=== PATIENT | female | born 1945 | race Caucasian/White ===

== ENCOUNTER → 2020-12-11 | Outpatient (CLI) | payer MEDICARE ==
[2020-12-11 13:34] LABS: African American GFR (CKD) >90 (>60 ml/min/1.73 sqM); Blood Urea Nitrogen 15 mg/dL (7-17); Non-African American GFR(CKD) 86 (>60 ml/min/1.73 sqM)
--- NOTE | 2020-12-12 11:50 | CT ---
EXAMINATION TYPE: CT abdomen pelvis w con DATE OF EXAM: 12/11/2020 COMPARISON: None HISTORY: Diverticulitis CT DLP: 578.4 mGycm CONTRAST: CT scan of the abdomen and pelvis is performed with Oral Contrast and with IV Contrast, patient injec shobha with 100 ml mL of Isovue 300. FINDINGS: LUNG BASES-: No visible nodule. No infiltrate. LIVER/GB: No calcified gallstones. No space occupying hepatic lesion. Biliary tree is of normal ca liber. PANCREAS: No inflammation. No distinct mass. SPLEEN: No splenic enlargement. 1 cm cystic lesion midportion spleen. ADRENALS: No nodule. No thickening. KIDNEYS/BLADDER: No hydronephrosis. No nephrolithiasis. No distinct renal mass. Urinary bladder g rossly unremarkable. BOWEL: Normal appendix. Normal bowel caliber. No inflammation. Fecal stasis. No evidence for divert iculitis or inflammatory process. GENITAL ORGANS: No gross abnormality. LYMPH NODES: No greater than 1cm abdominal or pelvic lymph nodes are appreciated. AORTA: Abdominal aortic aneurysm measuring 3.3 cm. OSSEOUS STRUCTURES: No significant abnormality is seen. OTHER: No significant additional abnormality is seen. IMPRESSION: 1. Fecal stasis. No evidence for diverticulitis. 2. Abdominal aortic aneurysm.
== END | disposition home or self-care (01) ==
LOC: RADCTMAIN 12:52
PROVIDERS: ATTEND Surgery
DX: I71.4 Abdominal aortic aneurysm, without rupture (principal); K59.89 Other specified functional intestinal disorders
CPT/HCPCS: 82565; 84520; 74177; 36415; Q9967

== ENCOUNTER → 2020-12-16 | Outpatient (CLI) | payer MEDICARE ==
[2020-12-16 13:33] LABS: HCT 43.1 % (34.0-46.0); HGB 13.8 gm/dL (11.4-16.0); MCH 32.2 pg (25.0-35.0); MCHC 31.9 g/dL (31.0-37.0); Mean Platelet Volume 7.6; Platelet Count 205 k/uL (150-450); RBC 4.27 m/uL (3.80-5.40); RDW 13.3 % (11.5-15.5); WBC 5.4 k/uL (3.8-10.6)
[2020-12-16 14:10] LABS: Anion Gap 8 mmol/L; Carbon Dioxide 27 mmol/L (22-30); Chloride 101 mmol/L (98-107); Potassium 4.3 mmol/L (3.5-5.1); Sodium 136 mmol/L (137-145)
[2020-12-16 14:52] LABS: ALT 12 U/L (4-34); AST 27 U/L (14-36); African American GFR (CKD) >90 (>60 ml/min/1.73 sqM); Alkaline Phosphatase 73 U/L (38-126); Blood Urea Nitrogen 19 mg/dL (7-17); Calcium 10.5 mg/dL (8.4-10.2); Glucose 90 mg/dL (74-99); Non-African American GFR(CKD) >90 (>60 ml/min/1.73 sqM); Total Bilirubin 0.5 mg/dL (0.2-1.3); Total Protein 6.8 g/dL (6.3-8.2)
== END | disposition home or self-care (01) ==
LOC: LABPAT 11:33
PROVIDERS: ATTEND Surgery
DX: Z01.818 Encounter for other preprocedural examination (principal); K57.33 Diverticulitis of large intestine without perforation or abscess with bleeding; R94.31 Abnormal electrocardiogram [ECG] [EKG]
CPT/HCPCS: 36415; 80053; 85027; 93005

== ENCOUNTER → 2020-12-16 | Outpatient (CLI) | payer MEDICARE ==
--- NOTE | 2020-12-16 15:00 | XR ---
EXAMINATION TYPE: XR chest 2V DATE OF EXAM: 12/16/2020 COMPARISON: NONE HISTORY: History of atrial fibrillation. Presurgical study. TECHNIQUE: Frontal and lateral views of the chest are obtained. FINDINGS: There are chronic parenchymal changes without suspicious focal air space opacity, pleural effusion, or pneumothorax seen. The cardiac silhouette size is within normal limits with atheroscler otic change aortic knob. The osseous structures are somewhat demineralized. IMPRESSION: No acute cardiopulmonary process.
== END | disposition home or self-care (01) ==
LOC: RADXRMAIN 14:31
PROVIDERS: ATTEND Family Medicine
DX: Z01.818 Encounter for other preprocedural examination (principal); Z86.79 Personal history of other diseases of the circulatory system
CPT/HCPCS: 71046

== ENCOUNTER 2020-12-27 07:52 | Day surgery (SDC) | payer MEDICARE ==
[2020-12-27 08:46] VITALS: RESP 16; TEMP 98.4
[2020-12-27] MEDS: LACTATED RINGERS 1,000 ML IV SCH ×3 (08:55→09:03)
[2020-12-27] MEDS ORDERED: PROPOFOL 10 MG/ML 20 ML VIAL IV ONE (09:03)
[2020-12-27] MEDS ORDERED: LIDOCAINE 1% INJ 10MG/ML (20 ML MDV) ONE (09:03)
[2020-12-27] MEDS ORDERED: GLUCAGON 1 MG/ML VIAL ONE (09:03)
[2020-12-27] MEDS ORDERED: GLYCOPYRROLATE 0.2 MG/ML 2 ML VIAL ONE (09:03)
--- NOTE | 2020-12-27 09:06 | P.GSHP ---
History of Present Illness H&P Date: 12/27/20 Chief Complaint: Left lower quadrant pain, diverticulitis This is a 75-year-old female with a left lower quadrant pain. She presents today for colonoscopy to evaluate for possible diverticulitis Past Medical History Past Medical History: COPD, GERD/Reflux, Hyperlipidemia, Hypertension, Osteoarthritis (OA), Pulmonary Embolus (PE), Thyroid Disorder Additional Past Medical History / Comment(s): DIVERTICULITIS History of Any Multi-Drug Resistant Organisms: None Reported Past Surgical History: Tonsillectomy Past Anesthesia/Blood Transfusion Reactions: No Reported Reaction Past Psychological History: No Psychological Hx Reported Smoking Status: Current every day smoker Past Alcohol Use History: Occasional Additional Past Alcohol Use History / Comment(s): HAS SMOKED FOR 50 YEARS, DOWN TO 10 PER DAY Past Drug Use History: None Reported - Past Family History Mother Family Medical History: No Reported History Medications and Allergies Home Medications Medication Instructions Recorded Confirmed Type Apixaban [Eliquis] 5 mg PO DAILY 12/21/20 12/27/20 History Cyanocobalamin (Vitamin B-12) 1 tab PO DAILY 12/21/20 12/27/20 History [Vitamin B-12] Fluticasone/Vilanterol [Breo 1 puff INHALATION QAM 12/21/20 12/27/20 History Ellipta 200-25 Mcg Inhaler] Hydrocodone/Acetaminophen [[place] 1 tab PO BID PRN 12/21/20 12/27/20 History 7.5-325] Levothyroxine Sodium 100 mcg PO QAM 12/21/20 12/27/20 History Metoprolol Tartrate 25 mg PO BID 12/21/20 12/27/20 History Montelukast [Singulair] 10 mg PO HS 12/21/20 12/27/20 History Omeprazole 40 mg PO QAM 12/21/20 12/27/20 History Raloxifene [Evista] 60 mg PO HS 12/21/20 12/27/20 History Rosuvastatin [Crestor] 10 mg PO HS 12/21/20 12/27/20 History Allergies Allergy/AdvReac Type Severity Reaction Status Date / Time naproxen [From Naprosyn] Allergy Dyspnea, Verified 12/27/20 08:37 MOUTH SWELLING Tetanus Vaccines and Toxoid Allergy Unknown Verified 12/27/20 08:37 Childhood Surgical - Exam Vital Signs Temp Pulse Resp BP Pulse Ox 98.4 F 88 16 147/60 93 L 12/27/20 08:44 12/27/20 08:44 12/27/20 08:44 12/27/20 08:44 12/27/20 08:44 - General well developed, well nourished, no distress - Eyes PERRL - ENT normal pinna - Neck no masses - Respiratory normal expansion - Cardiovascular Rhythm: regular - Abdomen Abdomen: soft, non tender Assessment and Plan Assessment: History of flow quadrant pain. We'll perform colonoscopy.
--- NOTE | 2020-12-27 09:24 | P.OP ---
Date of Procedure: 12/27/20 Preoperative Diagnosis: Diverticulitis Postoperative Diagnosis: Rectal polyp Procedure(s) Performed: Colonoscopy Anesthesia: MAC Surgeon: Reynold Soto Pathology: other (Rectal polyp) Condition: stable Disposition: PACU Description of Procedure: The patient's placed on the endoscopy table in the lateral position. She received IV sedation. Digital rectal exam was performed. This revealed no abnormalities. Flexible colonoscope was then placed patient anus passed throughout the colon. The colonoscope was passed beyond the sigmoid colon sigmoid tortuosity valve. This point the colonoscope was withdrawn. The pediatric colonoscope was then attempted placement colon. The scope could not pass beyond the sigmoid colon secondary to tortuous valve. This this point the scope was withdrawn. In the rectum there is a sessile polyp seen this removed with the cold forcep. Withdrawn for patient. Patient was scheduled for a barium enema.
[2020-12-27 09:40] VITALS: BP 131/71; PULSE 89
== END 2020-12-27 11:17 | disposition home or self-care (01) ==
LOC: ORWHC2ENDO 07:52
PROVIDERS: ATTEND Surgery
DX: K57.90 Diverticulosis of intestine, part unspecified, without perforation or abscess without bleeding (principal); K62.1 Rectal polyp; J44.9 Chronic obstructive pulmonary disease, unspecified; K21.9 Gastro-esophageal reflux disease without esophagitis; E78.5 Hyperlipidemia, unspecified; I10 Essential (primary) hypertension; M19.90 Unspecified osteoarthritis, unspecified site; F17.210 Nicotine dependence, cigarettes, uncomplicated; Z86.711 Personal history of pulmonary embolism; Z79.899 Other long term (current) drug therapy; Z88.6 Allergy status to analgesic agent; Z88.7 Allergy status to serum and vaccine; E07.9 Disorder of thyroid, unspecified; Z79.01 Long term (current) use of anticoagulants
CPT/HCPCS: 88305; 45333; J1610; J2001; J2704

== ENCOUNTER 2020-12-28 07:40 | Inpatient (IN) | payer MEDICARE ==
[~2020-12-28 07:40] MED LIST: ACETAMINOPHEN TAB 500 MG TAB PO PRN; DEXAMETHASONE SOD PHOSPHATE 4 MG/ML 1 ML VIAL IV ONE; HEPARIN SODIUM,PORCINE/PF 5,000 UNIT/0.5 ML SYRINGE SQ PRN; HYDROmorphone 0.5 MG/0.5 ML SYRINGE IVP PRN; MIDAZOLAM 2 MG/2 ML VIAL IV PRN; metroNIDAZOLE-NS PMX 500 MG in SALINE 1 100ML.BAG IVPB PRN
[2020-12-28] MEDS: LACTATED RINGERS 1,000 ML IV SCH ×2 (09:18→23:37)
[2020-12-28] MEDS ORDERED: LIDOCAINE 1% (10MG/ML) FOR IV START INTRADERMA ONE (09:18)
[2020-12-28] MEDS ORDERED: ALVIMOPAN 12 MG CAPSULE PO ONE (09:25)
[2020-12-28] MEDS: ONDANSETRON 4 MG/2 ML VIAL IVP ONE ×2 (09:25→14:36)
--- NOTE | 2020-12-28 10:51 | P.GSHP ---
History of Present Illness H&P Date: 12/28/20 Chief Complaint: Left lower quadrant pain, diverticulitis This a 75-year-old female who presents today for low anterior section. Patient had chronic complaints of left lower quadrant pain and previous history of diverticulitis. Past Medical History Past Medical History: COPD, GERD/Reflux, Hyperlipidemia, Hypertension, Osteoarthritis (OA), Pulmonary Embolus (PE), Thyroid Disorder Additional Past Medical History / Comment(s): DIVERTICULITIS History of Any Multi-Drug Resistant Organisms: None Reported Past Surgical History: Tonsillectomy Past Anesthesia/Blood Transfusion Reactions: No Reported Reaction Past Psychological History: No Psychological Hx Reported Smoking Status: Current every day smoker Past Alcohol Use History: Occasional Additional Past Alcohol Use History / Comment(s): HAS SMOKED FOR 50 YEARS, DOWN TO 10 PER DAY Past Drug Use History: None Reported - Past Family History Mother Family Medical History: No Reported History Medications and Allergies Home Medications Medication Instructions Recorded Confirmed Type Apixaban [Eliquis] 5 mg PO DAILY 12/21/20 12/28/20 History Cyanocobalamin (Vitamin B-12) 1 tab PO DAILY 12/21/20 12/28/20 History [Vitamin B-12] Fluticasone/Vilanterol [Breo 1 puff INHALATION QAM 12/21/20 12/28/20 History Ellipta 200-25 Mcg Inhaler] Hydrocodone/Acetaminophen [[place] 1 tab PO BID PRN 12/21/20 12/28/20 History 7.5-325] Levothyroxine Sodium 100 mcg PO QAM 12/21/20 12/28/20 History Metoprolol Tartrate 25 mg PO BID 12/21/20 12/28/20 History Montelukast [Singulair] 10 mg PO HS 12/21/20 12/28/20 History Omeprazole 40 mg PO QAM 12/21/20 12/28/20 History Raloxifene [Evista] 60 mg PO HS 12/21/20 12/28/20 History Rosuvastatin [Crestor] 10 mg PO HS 12/21/20 12/28/20 History Allergies Allergy/AdvReac Type Severity Reaction Status Date / Time naproxen [From Naprosyn] Allergy Dyspnea, Verified 12/28/20 09:11 MOUTH SWELLING Tetanus Vaccines and Toxoid Allergy Unknown Verified 12/28/20 09:11 Childhood Surgical - Exam Vital Signs Temp Pulse Resp BP Pulse Ox 98.4 F 69 16 115/56 93 L 12/28/20 09:07 12/28/20 09:07 12/28/20 09:07 12/28/20 09:07 12/28/20 09:07 - General well developed, well nourished, no distress - Eyes PERRL - ENT normal pinna - Neck no masses - Respiratory normal expansion - Cardiovascular Rhythm: regular - Abdomen Mild tenderness left lower quadrant Abdomen: soft Assessment and Plan Assessment: Chronic left lower quadrant pain, history of diverticula is. We'll perform a low anterior resection
[2020-12-28] MEDS ORDERED: PROPOFOL 10 MG/ML 20 ML VIAL IV ONE (11:20)
[2020-12-28] MEDS ORDERED: ROCURONIUM 10 MG/ML (5 ML VIAL) IV ONE (11:20)
[2020-12-28] MEDS ORDERED: NEOSTIGMINE 1 MG/ML 10 ML VIAL ONE (11:20)
[2020-12-28] MEDS ORDERED: HYDROmorphone (PF) 1 MG/ML ONE (11:20)
[2020-12-28] MEDS ORDERED: GLYCOPYRROLATE 0.2 MG/ML 2 ML VIAL ONE (11:20)
[2020-12-28] MEDS ORDERED: fentaNYL (PF) 50 MCG/ML 2 ML AMP ONE (11:20)
[2020-12-28] MEDS ORDERED: SUCCINYLCHOLINE CHLORIDE 100 MG/5 ML SYR IV ONE (11:20)
[2020-12-28] MEDS ORDERED: LIDOCAINE 1% INJ 10MG/ML (20 ML MDV) ONE (11:20)
[2020-12-28] MEDS ORDERED: NALOXONE 0.4 MG/ML 1 ML VIAL IV PRN (12:37)
--- NOTE | 2020-12-28 12:39 | P.ANPRN ---
Procedure Note - Anesthesia - Epidural/Spinal Epidural Time Out Performed: Yes Date of Procedure: 12/28/20 Procedure Start Time: 10:20 Procedure Stop Time: 10:31 Location of Patient: PreOp Indication: Acute Post-Operative Pain Sedation Type: Sedate with meaningful contact maintained Preparation: Sterile Dressing Position: Sitting Catheter: Indwelling Needle Guage: 18 Injectate: Test Dose Lidocaine1.5% w/1:200,000 epi (3cc) Blood Aspirated: No Pain Paresthesia on Injection Noted: No Events: Uneventful and Well Tolerated
[2020-12-28] MEDS ORDERED: METOCLOPRAMIDE 5 MG/ML 2 ML VIAL IVP PRN (12:52)
--- NOTE | 2020-12-28 13:02 | P.OP ---
Date of Procedure: 12/28/20 Preoperative Diagnosis: Diverticulitis Postoperative Diagnosis: Diverticulitis with pelvic abscess Procedure(s) Performed: Low anterior resection Partial omentectomy Anesthesia: TRACY Surgeon: Reynold Soto Estimated Blood Loss (ml): 50 Pathology: other (Sigmoid colon, abscess culture, omentum) Condition: stable Disposition: PACU Description of Procedure: The patient's placed on the operative table in supine position. She received general endotracheal tube anesthesia. Her abdomen was prepped and draped usual sterile fashion. And was entered through a low midline incision. The [place] tract with wound. The small bowel was packed out of the pelvis. And then the sigmoid colon was visualized. There was induration of the sigmoid colon. The; was significantly stuck to the left pelvic sidewall. Using blunt and sharp dissection the; was dissected away from the left pelvis. There was an abscess cavity entered. This was approximately 2 cm in diameter. The area was cultured. And then the sigmoid colon was transected proximally and then using Enseal device the mesentery of the bowel was divided. The mesorectum was divided. And then the rectum was transected with the contour stapler. The proximal colon was then opened at the staple line. The anvil for the 25 mm EEA stapler was placed into the colon. The colon was then transected with a LOPEZ stapler. The anvil was then driven through the colon just proximal to the staple line. The assistant press operator then placed the EEA stapler in the anus. The spike for stapler was driven through the rectal staple line. The antrum was then connected to the stapler. The stapler closed and fired. The stapler was with drawn. 2 intact tissue rings were withdrawn from stapler. Using a high Prograf the bowel was occluded. And then using a rigid sigmoidoscope the rectum was insufflated with air. There was no evidence of leakage at the staple line. The abdomen was irrigated is no bleeding seen. There was a portion of omentum which was nonviable this was transected with the Enseal device and sent to pathology. The fascia was closed with looped #1 PDS suture. Skin was closed sera. Patient top she will well and was sent to recovery room in stable condition.
[2020-12-28] MEDS ORDERED: ONDANSETRON 4 MG/2 ML VIAL ONE (14:33)
[2020-12-28] MEDS ORDERED: diphenhydrAMINE 50 MG/ML 1 ML VIAL ONE (14:40)
[2020-12-28] MEDS ORDERED: SODIUM CHLORIDE 0.9% 1,000 ML IV ONE ×2 (14:41→16:25)
[2020-12-28] MEDS ORDERED: diphenhydrAMINE 50 MG/ML 1 ML VIAL IVP ONE (14:43)
[2020-12-28] MEDS ORDERED: METOCLOPRAMIDE 5 MG/ML 2 ML VIAL IVP ONE (16:16)
[2020-12-28] MEDS: D5-0.45% NACL WITH KCL 20MEQ/L 1,000 ML IV SCH ×2 (17:49→23:36)
[2020-12-28] MEDS: HEPARIN SODIUM,PORCINE/PF 5,000 UNIT/0.5 ML SYRINGE SQ SCH ×2 (18:20→23:36)
[2020-12-28] MEDS: ROPIVACAINE 250 MG, fentaNYL (PF) 625 MCG in SODIUM CHLORIDE 0.9% 188 ML EPIDURAL PRN ×2 (20:22→23:37)
[2020-12-28] MEDS: ALVIMOPAN 12 MG CAPSULE PO SCH (20:22)
[2020-12-28 22:26] LABS: Basophils % (A) 0 %; Eosinophils % (A) 0 %; HCT 39.2 % (34.0-46.0); HGB 12.9 gm/dL (11.4-16.0); Lymphocytes # (A) 0.9 k/uL (1.0-4.8); Lymphocytes % (A) 8 %; MCH 32.7 pg (25.0-35.0); MCHC 32.9 g/dL (31.0-37.0); MCV 99.3 fL (80.0-100.0); Mean Platelet Volume 9.2; Monocytes # (A) 0.3 k/uL (0-1.0); Monocytes % (A) 3 %; Neutrophils # (A) 9.5 k/uL (1.3-7.7); Neutrophils % (A) 88 %; Platelet Count 148 k/uL (150-450); RBC 3.94 m/uL (3.80-5.40); RDW 13.2 % (11.5-15.5); WBC 10.8 k/uL (3.8-10.6)
[2020-12-28 22:37] LABS: African American GFR (CKD) >90 (>60 ml/min/1.73 sqM); Blood Urea Nitrogen 8 mg/dL (7-17); Carbon Dioxide 29 mmol/L (22-30); Non-African American GFR(CKD) >90 (>60 ml/min/1.73 sqM)
[2020-12-28 22:58] LABS: Anion Gap 5 mmol/L; Chloride 103 mmol/L (98-107); Glucose 169 mg/dL (74-99); Potassium 4.1 mmol/L (3.5-5.1); Sodium 136 mmol/L (137-145)
[2020-12-29] MEDS: HEPARIN SODIUM,PORCINE/PF 5,000 UNIT/0.5 ML SYRINGE SQ SCH (07:53)
[2020-12-29] MEDS: CYANOCOBALAMIN 500 MCG TAB PO SCH (07:53)
[2020-12-29] MEDS: METOPROLOL TARTRATE 25 MG TAB PO SCH ×2 (07:54→20:13)
[2020-12-29] MEDS: ALVIMOPAN 12 MG CAPSULE PO SCH ×2 (07:54→20:13)
[2020-12-29] MEDS: LEVOTHYROXINE 100 MCG TAB PO SCH (07:54)
[2020-12-29] MEDS: PANTOPRAZOLE 40 MG TABLET PO SCH (07:57)
[2020-12-29] MEDS: SYMBICORT 160-4.5 MCG INHALER INHALATION SCH ×2 (09:00→19:36)
[2020-12-29] MEDS: SIMETHICONE 40 MG/0.6 ML DROPS 2,000 MG/30 ML BOTTLE PO SCH ×4 (10:01→21:21)
[2020-12-29] MEDS: PIPERACILLIN-TAZOBACTAM 3.375 GM in SODIUM CHLORIDE 0.9% 100 ML IVPB SCH ×2 (10:02→17:31)
[2020-12-29] MEDS: D5-0.45% NACL WITH KCL 20MEQ/L 1,000 ML IV SCH ×2 (10:03→17:31)
[2020-12-29 10:21] LABS: Basophils % (A) 0 %; Eosinophils % (A) 0 %; HCT 40.7 % (34.0-46.0); HGB 12.9 gm/dL (11.4-16.0); Lymphocytes # (A) 1.5 k/uL (1.0-4.8); Lymphocytes % (A) 17 %; MCH 32.1 pg (25.0-35.0); MCHC 31.8 g/dL (31.0-37.0); Mean Platelet Volume 7.7; Monocytes # (A) 0.3 k/uL (0-1.0); Monocytes % (A) 4 %; Neutrophils # (A) 6.7 k/uL (1.3-7.7); Neutrophils % (A) 77 %; Platelet Count 180 k/uL (150-450); RBC 4.02 m/uL (3.80-5.40); RDW 13.1 % (11.5-15.5); WBC 8.7 k/uL (3.8-10.6)
[2020-12-29 10:32] LABS: ALT 14 U/L (4-34); AST 33 U/L (14-36); African American GFR (CKD) >90 (>60 ml/min/1.73 sqM); Albumin 3.2 g/dL (3.5-5.0); Albumin/Globulin Ratio 1.2; Alkaline Phosphatase 66 U/L (38-126); Anion Gap 2 mmol/L; Blood Urea Nitrogen 5 mg/dL (7-17); Calcium 9.5 mg/dL (8.4-10.2); Carbon Dioxide 33 mmol/L (22-30); Chloride 100 mmol/L (98-107); Globulin 2.7 g/dL; Glucose 147 mg/dL (74-99); Non-African American GFR(CKD) >90 (>60 ml/min/1.73 sqM); Potassium 3.9 mmol/L (3.5-5.1); Sodium 135 mmol/L (137-145); Total Bilirubin 0.3 mg/dL (0.2-1.3); Total Protein 5.9 g/dL (6.3-8.2)
[2020-12-29 10:46] LABS: C Reactive Protein 15.2 mg/dL (<1.0)
--- NOTE | 2020-12-29 11:37 | P.PN ---
Subjective Progress Note Date: 12/29/20 CHIEF COMPLAINT: Diverticulitis with pelvic abscess HISTORY OF PRESENT ILLNESS: Patient is status post lower anterior resection and partial omentectomy. Postop day #1. Has epidural in place. Patient is reporting pain. Her pain is slightly improved since the increase in her epidural. There is apparent with some leaking from the epidural and the CUSTOMER ADVOCACY MANAGER will be through to reevaluate. Patient also complaining of gas pains in the shoulders. Patient denies any nausea vomiting. Denies any flatus. She has had good urine output. Afebrile. WBC 8.7 Hgb 12.9 sodium 135 creatinine 0.5 to CRP 15.2 PHYSICAL EXAM: VITAL SIGNS: Reviewed. GENERAL: Well-developed in no acute distress. HEENT: No sclera icterus. Extraocular movements grossly intact. Moist buccal mucosa. Head is atraumatic, normocephalic. ABDOMEN: Soft. Nondistended. Incisional dressing minimal dry blood noted at the distal aspect incisional dressing NEUROLOGIC: Alert and oriented. Cranial nerves II through XII grossly intact. ASSESSMENT: 1. Diverticulitis with pelvic abscess status post lower anterior resection and partial omentectomy PLAN: -Continue clear liquid diet -Continue epidural for pain control -Continue Grewal catheter -Add simethicone gas drops -Continue IV fluids -Encourage patient to ambulate -Encourage patient to use incentive spirometer -Continue antibiotics -GI and DVT prophylaxis Physician Pet Supplies Salesperson note has been reviewed by physician. Signing provider agrees with the documented findings, assessment, and plan of care. Objective - Vital Signs Vital signs: Vital Signs Temp 97.9 F 12/29/20 07:16 Pulse 78 12/29/20 07:16 Resp 18 12/29/20 07:16 BP 117/66 12/29/20 07:16 Pulse Ox 93 L 12/29/20 07:16 Intake & Output 12/28/20 12/29/20 12/29/20 18:59 06:59 18:59 Intake Total 2029 19.5 61.916 Output Total 1950 1000 Balance 80 -980.5 61.916 Weight 64.8 kg Intake: IV 2030 Intake, IV Titration 19.5 61.916 Amount Ropivacaine 250 mg 19.5 61.916 fentaNYL (PF) 625 mcg In Sodium Chloride 0.9% 188 ml @ Per Protocol EPIDURAL .Q0M PRN Rx#: [id number] Output: Urine 1900 1000 Estimated Blood Loss 50 Other: Voiding Method Indwelling Catheter Indwelling Catheter Indwelling Catheter - Labs CBC & Chem 7: 12/29/20 09:41 12/29/20 09:41 Labs: Abnormal Lab Results - Last 24 Hours (Table) 12/28/20 12/28/20 12/29/20 Range/Units 22:14 22:14 09:41 WBC 10.8 H (3.8-10.6) k/uL MCV 101.0 H (80.0-100.0) fL Plt Count 148 L (150-450) k/uL Neutrophils # 9.5 H (1.3-7.7) k/uL Lymphocytes # 0.9 L (1.0-4.8) k/uL Sodium 136 L (137-145) mmol/L Carbon Dioxide (22-30) mmol/L BUN (7-17) mg/dL Creatinine 0.49 L (0.52-1.04) mg/dL Glucose 169 H (74-99) mg/dL C-Reactive Protein (<1.0) mg/dL Total Protein (6.3-8.2) g/dL Albumin (3.5-5.0) g/dL 12/29/20 Range/Units 09:41 WBC (3.8-10.6) k/uL MCV (80.0-100.0) fL Plt Count (150-450) k/uL Neutrophils # (1.3-7.7) k/uL Lymphocytes # (1.0-4.8) k/uL Sodium 135 L (137-145) mmol/L Carbon Dioxide 33 H (22-30) mmol/L BUN 5 L (7-17) mg/dL Creatinine (0.52-1.04) mg/dL Glucose 147 H (74-99) mg/dL C-Reactive Protein 15.2 H (<1.0) mg/dL Total Protein 5.9 L (6.3-8.2) g/dL Albumin 3.2 L (3.5-5.0) g/dL Microbiology - Last 24 Hours (Table) 12/28/20 12:50 Gram Stain - Preliminary Other - Other Wound Culture - Preliminary Gram Neg Bacilli 12/28/20 12:50 Anaerobic Culture - Preliminary Other - Other
--- NOTE | 2020-12-29 13:01 | P.CONS ---
History of Present Illness - Reason for Consult Consult date: 12/29/20 - Chief Complaint Diverticulitis with pelvic abscess - History of Present Illness History of present illness 75 years old female with past medical his of COPD, history of pulmonary embolism in May 2018 on Eliquis, GERD, hyperlipidemia, hypertension, hypothyroidism who is admitted under Dr. Wilkinson care for acute diverticulitis with pelvic abscess status post low anterior resection and partial omentectomy on 12/28. Patient was seen today for medical management. Patient endorses abdominal bloating associated with constipation. She is currently on epidural with fentanyl for pain control. Patient denies any nausea or vomiting. She denies any chest pain, shortness of breath. Patient was not passing any flatus or having any bowel movement. She does complain of gas pain in the shoulder. Vitals were reviewed patient is afebrile pulse 77 respiratory rate 70 blood pressure 111/54 oxygen saturation 93% on 2 L. Patient endorses cough but denies any shortness of breath at this moment. Labs ordered patient's WBC is 8.7 hemoglobin 12.9 sodium 135 potassium 3.9 BUN 5 creatinine 0.5 bicarb of 33 glucose 147 ESR elevated. CRP elevated at 15.2, rotavirus detected. ROS Constitutional: Denies chills, Denies fever, Denies lethargy, Denies malaise, Denies poor appetite, Denies weakness, Denies weight loss Eyes: denies decreased vision, denies diplopia, denies discharge, denies pain Ears: deny: decreased hearing Ears, nose, mouth and throat: Denies dental pain, Denies headache, Denies nasal discharge, Denies nose pain Cardiovascular: Denies chest pain, Denies decreased exercise tolerance, Denies edema, Denies high blood pressure, Denies irregular heart beat, Denies palpitations, Denies paroxysmal nocturnal dyspnea, Denies rapid heart beat, Denies shortness of breath Respiratory: Denies congestion, endorses dry cough, Denies cough with sputum, Denies dyspnea, Denies home oxygen, Denies wheezing Gastrointestinal: Endorses abdominal pain, endorses bloating Denies change in bowel habits, Denies coffee ground emesis, Denies early satiety, endorses excessive gas, Denies heartburn, Denies hematemesis, Denies hematochezia, Denies loss of appetite, Denies nausea, Denies vomiting Genitourinary: Denies dysuria, Denies flank pain, Denies kidney stones, Denies menorrhagia, Denies urgency, Denies urinary frequency Musculoskeletal: Denies gait dysfunction, Denies limitation of motion, Denies morning stiffness, Denies muscle cramps Integumentary: Denies rash, Denies wounds, Denies brittle nails, Denies change in hair/nails, Denies darkening of skin Neurological: Denies balance difficulties, Denies change in speech, Denies double vision, Denies gait dysfunction, Denies loss of vision, Denies motor disturbance, Denies numbness, Denies paralysis, Denies paresthesias, Denies seizures Psychiatric: Denies anxiety, Denies depression Endocrine: Denies excessive sweating, Denies excessive thirst, Denies high blood sugars, Denies palpitations Hematologic/Lymphatic: Denies easy bruising, Denies lymphadenopathy Social history Patient is a smoker for 50 years smokes 10 cigarettes a day has been smoking since age 25 drinks alcohol occasionally denies any marijuana or any illicit drug use Family history Mother at age of 88 following femur fracture and complications Father passed at the age of 62 from alcohol abuse and prostate cancer Brother at age of 60 from alcohol use Patient has 2 sisters with one sister history of stroke Patient has 3 children one passed from house fire, another son passed from coronary artery disease and congestive heart failure. One son has coronary artery disease and is living Physical exam - Constitutional General appearance: cooperative, no acute distress, thin-appearing, mild distress - EENT Eyes: anicteric sclerae, PERRLA, normal appearance ENT: hearing grossly normal - Neck Neck: no lymphadenopathy, normal ROM, no other, no rigidity, no stridor, no thyromegaly - Respiratory Respiratory: bilateral: CTA, bilateral rhonchi at the bases - Cardiovascular Rhythm: regular Heart sounds: normal: S1, S2 Abnormal Heart Sounds: no systolic murmur, no diastolic murmur, no rub, no S3 Gallop, no S4 Gallop, no click, no other - Gastrointestinal General gastrointestinal: normal bowel sounds, soft low anterior incision with minimal drainage at the site of his incision nontender to palpate bowel sounds present - Integumentary Integumentary: no rash epidural in place - Neurologic Neurologic: No gross sensory or motor deficit intact - Musculoskeletal Musculoskeletal: gait not assessed, strength equal bilaterally - Psychiatric Psychiatric: A&O x's 3, appropriate affect Assessment and plan #1 acute diverticulitis with pelvic abscess status post low anterior resection with partial omentectomy on 12/28 continue clear liquid diet. Continue epidural for pain control. Patient would benefit from simethicone for bloating. Zosyn initiated at 3.375 every 6 hours for pelvic abscess. #2 acute hypoxic respiratory failure secondary to atelectasis no pneumonia noted. Chest x-ray ordered. Incentive's spirometry 10 times every hour reinforced to the patient. #3 COPD not in exacerbation continue DuoNeb as needed for shortness of breath. Continue breo ellipta #4 pulmonary embolism on Eliquis. We will discuss with surgery team if they're comfortable restarting Eliquis at this moment. #5 hypertension continue metoprolol 25 twice a day #6 hyperlipidemia continue Crestor 10 mg daily at bedtime #7 hypothyroidism continue Synthyroid at 100 g by mouth daily #8 CODE STATUS full code #9 DVT prophylaxis on heparin every 12 Thank you for the consult. I'll happy to assist patient's medical needs while patient is in the hospital Past Medical History Past Medical History: COPD, GERD/Reflux, Hyperlipidemia, Hypertension, Osteoarthritis (OA), Pulmonary Embolus (PE), Thyroid Disorder Additional Past Medical History / Comment(s): DIVERTICULITIS History of Any Multi-Drug Resistant Organisms: None Reported Past Surgical History: Tonsillectomy Past Anesthesia/Blood Transfusion Reactions: No Reported Reaction Past Psychological History: No Psychological Hx Reported Smoking Status: Current every day smoker Past Alcohol Use History: Occasional Additional Past Alcohol Use History / Comment(s): HAS SMOKED FOR 50 YEARS, DOWN TO 10 PER DAY Past Drug Use History: None Reported - Past Family History Mother Family Medical History: No Reported History Father Additional Family Medical History / Comment(s): Prostate CA Medications and Allergies Home Medications Medication Instructions Recorded Confirmed Type Apixaban [Eliquis] 5 mg PO DAILY 12/21/20 12/28/20 History Cyanocobalamin (Vitamin B-12) 1 tab PO DAILY 12/21/20 12/28/20 History [Vitamin B-12] Fluticasone/Vilanterol [Breo 1 puff INHALATION QAM 12/21/20 12/28/20 History Ellipta 200-25 Mcg Inhaler] Hydrocodone/Acetaminophen [[place] 1 tab PO BID PRN 12/21/20 12/28/20 History 7.5-325] Levothyroxine Sodium 100 mcg PO QAM 12/21/20 12/28/20 History Metoprolol Tartrate 25 mg PO BID 12/21/20 12/28/20 History Montelukast [Singulair] 10 mg PO HS 12/21/20 12/28/20 History Omeprazole 40 mg PO QAM 12/21/20 12/28/20 History Raloxifene [Evista] 60 mg PO HS 12/21/20 12/28/20 History Rosuvastatin [Crestor] 10 mg PO HS 12/21/20 12/28/20 History Allergies Allergy/AdvReac Type Severity Reaction Status Date / Time naproxen [From Naprosyn] Allergy Dyspnea, Verified 12/28/20 09:11 MOUTH SWELLING Tetanus Vaccines and Toxoid Allergy Unknown Verified 12/28/20 09:11 Childhood Physical Exam Vitals: Vital Signs Temp Pulse Pulse Resp BP BP Pulse Ox 12/29/20 07:16 97.9 F 78 18 117/66 93 L 12/29/20 02:00 97.6 F 77 17 111/54 93 L 12/28/20 18:12 86 118/66 93 L 12/28/20 17:57 82 122/70 12/28/20 17:42 88 120/70 12/28/20 17:27 89 119/68 12/28/20 17:12 91 124/67 12/28/20 16:56 97.7 F 89 16 120/65 93 L 12/28/20 15:51 82 14 104/58 97 12/28/20 15:30 95 14 100/45 96 12/28/20 15:00 75 14 139/56 96 12/28/20 14:31 97 16 145/70 97 12/28/20 14:15 101 H 18 140/69 94 L 12/28/20 14:00 87 14 159/67 99 12/28/20 13:54 80 14 166/68 98 12/28/20 13:45 73 16 166/68 98 12/28/20 13:30 90 20 163/76 93 L 12/28/20 13:15 74 14 188/79 95 12/28/20 13:00 89 14 174/80 98 12/28/20 12:57 97.3 F L 87 22 170/75 97 Intake and Output 12/28/20 12/29/20 12/29/20 22:59 06:59 14:59 Intake Total 19.5 93.116 Output Total 1800 1000 Balance -1800 -980.5 93.116 Intake: Intake, IV Titration 19.5 93.116 Amount Ropivacaine 250 mg 19.5 93.116 fentaNYL (PF) 625 mcg In Sodium Chloride 0.9% 188 ml @ Per Protocol EPIDURAL .Q0M PRN Rx#: [id number] Output: Urine 1800 1000 Other: Voiding Method Indwelling Catheter Indwelling Catheter Weight 64.8 kg Results CBC & Chem 7: 12/29/20 09:41 12/29/20 09:41 Labs: Abnormal Lab Results - Last 24 Hours (Table) 12/28/20 12/28/20 12/29/20 Range/Units 22:14 22:14 09:41 WBC 10.8 H (3.8-10.6) k/uL MCV 101.0 H (80.0-100.0) fL Plt Count 148 L (150-450) k/uL Neutrophils # 9.5 H (1.3-7.7) k/uL Lymphocytes # 0.9 L (1.0-4.8) k/uL Sodium 136 L (137-145) mmol/L Carbon Dioxide (22-30) mmol/L BUN (7-17) mg/dL Creatinine 0.49 L (0.52-1.04) mg/dL Glucose 169 H (74-99) mg/dL C-Reactive Protein (<1.0) mg/dL Total Protein (6.3-8.2) g/dL Albumin (3.5-5.0) g/dL 12/29/20 Range/Units 09:41 WBC (3.8-10.6) k/uL MCV (80.0-100.0) fL Plt Count (150-450) k/uL Neutrophils # (1.3-7.7) k/uL Lymphocytes # (1.0-4.8) k/uL Sodium 135 L (137-145) mmol/L Carbon Dioxide 33 H (22-30) mmol/L BUN 5 L (7-17) mg/dL Creatinine (0.52-1.04) mg/dL Glucose 147 H (74-99) mg/dL C-Reactive Protein 15.2 H (<1.0) mg/dL Total Protein 5.9 L (6.3-8.2) g/dL Albumin 3.2 L (3.5-5.0) g/dL Microbiology - Last 24 Hours (Table) 12/28/20 12:50 Gram Stain - Preliminary Other - Other Wound Culture - Preliminary Gram Neg Bacilli 12/28/20 12:50 Anaerobic Culture - Preliminary Other - Other
[2020-12-29] MEDS: HYDROmorphone 1 MG/ML 1 ML SYRINGE IVP PRN ×3 (13:41→20:13)
--- NOTE | 2020-12-29 13:52 | P.PN ---
Progress Note - Text 12/29/20 0680 75-year-old female status post low anterior resection by Dr. catherine. Patient has an epidural catheter for postop pain control the epidural was leaking at the site. I pulled epidural catheter, tip was intact. Plan to use IV narcotics for pain control.
[2020-12-29 14:00] VITALS: BMI 26.9
--- NOTE | 2020-12-29 14:08 | XR ---
EXAMINATION TYPE: XR chest 1V portable DATE OF EXAM: 12/29/2020 COMPARISON: Chest x-ray 12/16/2020 HISTORY: Rhonchi, shortness of breath TECHNIQUE: Single frontal view of the chest is obtained. FINDINGS: There is pneumoperitoneum, by history patient has undergone bowel resection on the previou s day. Patchy bilateral basilar density is present within the lungs. There is no evident pneumothorax . Cardiac mediastinal silhouette is within normal limits. There are overlying artifacts. The aorta is dense. IMPRESSION: Pneumoperitoneum is likely postoperative. Basilar atelectasis suspected. Consider follow -up PA and lateral chest x-ray for additional and better evaluation.
[2020-12-29 14:14] LABS: Erythrocyte Sedimentation Rate 12 mm/hr (0-20)
[2020-12-29] MEDS ORDERED: HYDROmorphone 0.5 MG/0.5 ML SYRINGE IVP PRN (17:58)
[2020-12-29] MEDS ORDERED: KETOROLAC 15 MG/ML 1 ML VIAL IVP SCH (18:00)
[2020-12-29] MEDS: MONTELUKAST 10 MG TAB PO SCH (20:13)
[2020-12-29] MEDS: APIXABAN 5 MG TAB PO SCH (20:13)
[2020-12-29] MEDS: ATORVASTATIN 20 MG TAB PO SCH (20:13)
[2020-12-29] MEDS: RALOXIFENE 60 MG TAB PO SCH (20:13)
[2020-12-30] MEDS: LACTATED RINGERS 1,000 ML IV SCH (00:42)
[2020-12-30] MEDS: ONDANSETRON 4 MG/2 ML VIAL IVP PRN ×2 (00:50→19:20)
[2020-12-30] MEDS: HYDROmorphone 1 MG/ML 1 ML SYRINGE IVP PRN ×5 (00:50→22:01)
[2020-12-30] MEDS: PIPERACILLIN-TAZOBACTAM 3.375 GM in SODIUM CHLORIDE 0.9% 100 ML IVPB SCH ×3 (00:50→16:49)
[2020-12-30] MEDS: D5-0.45% NACL WITH KCL 20MEQ/L 1,000 ML IV SCH ×3 (00:51→16:48)
[2020-12-30] MEDS: LEVOTHYROXINE 100 MCG TAB PO SCH (05:42)
[2020-12-30] MEDS: PANTOPRAZOLE 40 MG TABLET PO SCH (07:56)
[2020-12-30] MEDS: ALVIMOPAN 12 MG CAPSULE PO SCH ×2 (07:56→21:50)
[2020-12-30] MEDS: APIXABAN 5 MG TAB PO SCH ×2 (07:56→21:50)
[2020-12-30] MEDS: CYANOCOBALAMIN 500 MCG TAB PO SCH (07:56)
[2020-12-30] MEDS: METOPROLOL TARTRATE 25 MG TAB PO SCH ×2 (07:56→21:50)
[2020-12-30] MEDS: SIMETHICONE 40 MG/0.6 ML DROPS 2,000 MG/30 ML BOTTLE PO SCH ×4 (08:13→21:56)
[2020-12-30] MEDS: SYMBICORT 160-4.5 MCG INHALER INHALATION SCH ×2 (08:28→20:36)
--- NOTE | 2020-12-30 09:50 | P.PN ---
Subjective Progress Note Date: 12/30/20 CHIEF COMPLAINT: Diverticulitis with pelvic abscess HISTORY OF PRESENT ILLNESS: Patient is status post lower anterior resection and partial omentectomy. Postop day #2. Patient's epidural was discontinued yesterday due to a leaking. She does report her pain is controlled. She denies any flatus. She did have some nausea this morning but that has improved after drinking harrison luzmaria. She is laying in bed. She does report pain with ambulating. Her gas pains have improved. Grewal catheter removed. Patient urinating without difficulty. Afebrile. No new labs. Eliquis resumed yesterday PHYSICAL EXAM: VITAL SIGNS: Reviewed. GENERAL: Well-developed in no acute distress. HEENT: No sclera icterus. Extraocular movements grossly intact. Moist buccal mucosa. Head is atraumatic, normocephalic. ABDOMEN: Soft. Nondistended. Incisional dressing a few areas of small amount of bleeding noted NEUROLOGIC: Alert and oriented. Cranial nerves II through XII grossly intact. ASSESSMENT: 1. Diverticulitis with pelvic abscess status post lower anterior resection and partial omentectomy PLAN: -Continue clear liquid diet -Continue IV fluids -Continue pain medication as needed -Encourage patient to ambulate -Encourage patient to use incentive spirometer -Continue antibiotics -GI and DVT prophylaxis Physician Research And Development Director note has been reviewed by physician. Signing provider agrees with the documented findings, assessment, and plan of care. Objective - Vital Signs Vital signs: Vital Signs Temp 98.2 F 12/30/20 07:07 Pulse 91 12/30/20 07:07 Resp 18 12/30/20 07:07 BP 138/63 12/30/20 07:07 Pulse Ox 94 L 12/30/20 08:28 Intake & Output 12/29/20 12/30/20 12/30/20 18:59 06:59 18:59 Intake Total 93.116 Output Total 2750 1200 Balance -2656.884 -1200 Weight 64.8 kg Intake: Intake, IV Titration 93.116 Amount Ropivacaine 250 mg 93.116 fentaNYL (PF) 625 mcg In Sodium Chloride 0.9% 188 ml @ Per Protocol EPIDURAL .Q0M PRN Rx#: [id number] Output: Urine 2750 1200 Uretheral (Grewal) 1300 Other: Voiding Method Indwelling Catheter # Voids 1 2 - Labs CBC & Chem 7: 12/29/20 09:41 12/29/20 09:41 Labs: Abnormal Lab Results - Last 24 Hours (Table) 12/29/20 12/29/20 Range/Units 09:41 09:41 MCV 101.0 H (80.0-100.0) fL Sodium 135 L (137-145) mmol/L Carbon Dioxide 33 H (22-30) mmol/L BUN 5 L (7-17) mg/dL Glucose 147 H (74-99) mg/dL C-Reactive Protein 15.2 H (<1.0) mg/dL Total Protein 5.9 L (6.3-8.2) g/dL Albumin 3.2 L (3.5-5.0) g/dL Microbiology - Last 24 Hours (Table) 12/28/20 12:50 Gram Stain - Preliminary Other - Other Wound Culture - Preliminary Gram Neg Bacilli
--- NOTE | 2020-12-30 11:58 | P.PN ---
<Aaron Dyer - Last Filed: 12/30/20 11:32> Subjective Progress Note Date: 12/30/20 [facility] IS PROVIDING COVERAGE FOR [facility] (DR. MOE, DR. WILKINS, AND DR. LENZ) ON 12/30/20-12/31/20 PLEASE CONTACT US ON PERFECT SERVE WITH ANY QUESTIONS, NEEDS, OR CONCERNS. Hospital course: Patient is a very pleasant 75-year-old female with a past medical history of pulmonary embolism on anticoagulation with Eliquis, hypertension, hyperlipidemia, diverticulosis, COPD, nicotine dependence and hypothyroidism. Patient underwent low anterior resection and partial omentectomy completed on 12/28/[address] Soto secondary to diverticulitis with pelvic abscess. Hospitalist medicine consulted for medical management throughout patient's hospital stay. Physical exam: Patient seen and fully evaluated at the bedside this morning. She his postoperative day 2 and reports feeling great this morning. She denies having a bowel movement or passing any flatus in postoperative period. She denies any headache, lightheadedness, chest pain, palpitations, shortness of breath, cough, congestion, nausea or vomiting. She is tolerating a clear liquid diet at this time and diet to be advanced as recommended by primary general surgery team. Pt encouraged use of incentive spirometry and ambulation. She remains on 2L O2 via NC with SPO2 94%. Vital signs reviewed and stable. General: Nontoxic, no distress and appears stated age. Derm: Skin warm and dry, normal coloration for ethnicity. surgical incision midline with dressing intact mild shadowing of dried blood, no surrounding erythema or drainage noted. Head: Atraumatic, normocephalic and symmetric. Eyes: EOMs intact, no lid lag, and anicteric sclera Mouth: no lip lesions, mucus membranes moist Cardiovascular: regular rate and rhythm with normal S1S2, no murmur, positive posterior tibial pulses bilaterally, and cap refill < 2 seconds. Lungs: Respirations even, regular, and unlabored on 2L O2 via NC. Lungs CTA bilaterally, no rhonchi, no rales, no wheezing, and no accessory muscle usage. Abdominal: soft, nontender to palpation, no guarding, no appreciable organomegaly Ext: ROM intact. No gross muscle atrophy, no edema, no contractures Neuro: Speech clear, face symmetrical and CN II-XII grossly intact with no noted focal neuro deficits Psych: Alert and oriented to person, place, time, and situation. Appropriate and pleasant affect. Assessment and Plan of Care: Acute Diverticulitis with pelvic abscess Status post low anterior resection and partial omentectomy completed on 12/28/[address] Soto Pelvic abscess cultures positive for Klebsiella pneumoniae and Citrobacter freundii -Management per primary admitting general surgery team -Aerobic Wound culture from pelvic abscess positive for Klebsiella pneumoniae and Citrobacter freundii -Continue IV antibiotic therapy with Zosyn. -Continue clear liquid diet and advance as directed by general surgery team. -Encourage incentive spirometry and ambulation. -Close monitoring of intake and output. Acute hypoxic respiratory failure secondary to atelectasis COPD, Not in acute exacerbation -Chest x-ray revealing Pneumonperitoneum likely postoperative with basilar atelectasis -Encourage incentive spirometry 10-15 times hourly while awake -Encourage ambulation, out of bed with all meals -continue oxygen supplementation to maintain SpO2 equal to or greater than 90%, wean once patient tolerates, currently on 2 L with SpO2 of 94% -DuoNeb's as needed for shortness of breath. -Continue Breo Elipta History of pulmonary embolism on anticoagulation with Eliquis -Eliquis was resumed as recommended by surgical team. Continue anticoagulation, encourage ambulation Hypertension Monitor vital signs and continue daily medication regimen with metoprolol 25 mg twice daily. Hyperlipidemia Continue daily medication regimen with atorvastatin 20 mg nightly Hypothyroidism Continue daily medication regimen with [id number] mcg each morning. Thank you for allowing us to participate in the care of this pleasant patient. Do not hesitate to contact us with questions. Someone can be reached from the [facility] hospitalist group all hours of the day at [phone] or via [email or web address]. Objective - Vital Signs Vital signs: Vital Signs Temp 98.2 F 12/30/20 07:07 Pulse 91 12/30/20 07:07 Resp 18 12/30/20 07:07 BP 138/63 12/30/20 07:07 Pulse Ox 90 L 12/30/20 07:07 Intake & Output 12/29/20 12/30/20 12/30/20 18:59 06:59 18:59 Intake Total 93.116 Output Total 2750 1200 Balance -2656.884 -1200 Weight 64.8 kg Intake: Intake, IV Titration 93.116 Amount Ropivacaine 250 mg 93.116 fentaNYL (PF) 625 mcg In Sodium Chloride 0.9% 188 ml @ Per Protocol EPIDURAL .Q0M PRN Rx#: [id number] Output: Urine 2750 1200 Uretheral (Grewal) 1300 Other: Voiding Method Indwelling Catheter # Voids 1 2 - Labs CBC & Chem 7: 12/29/20 09:41 12/29/20 09:41 Labs: Abnormal Lab Results - Last 24 Hours (Table) 12/29/20 12/29/20 Range/Units 09:41 09:41 MCV 101.0 H (80.0-100.0) fL Sodium 135 L (137-145) mmol/L Carbon Dioxide 33 H (22-30) mmol/L BUN 5 L (7-17) mg/dL Glucose 147 H (74-99) mg/dL C-Reactive Protein 15.2 H (<1.0) mg/dL Total Protein 5.9 L (6.3-8.2) g/dL Albumin 3.2 L (3.5-5.0) g/dL Microbiology - Last 24 Hours (Table) 12/28/20 12:50 Gram Stain - Preliminary Other - Other Wound Culture - Preliminary Gram Neg Bacilli <Caroline Gonzalez - Last Filed: 12/30/20 14:30> Subjective Patient seen and examined independently. Patient was also seen by Aaron Dyer NP and case was discussed. I am in agreement with subjective, physical exam, assessment and plan as written above and amended below. Pain is currently well controlled. No nausea or vomiting. Patient had an ALLERGIC reaction to Jell-O with immediate hives on her bilateral arms as well as some itching of her throat. Itching of the throat resolved spontaneously, and hives are improving. General: non toxic, no distress, appears at stated age Derm: warm, dry, annualr lesion in bilateral arms Head: atraumatic, normocephalic, symmetric Eyes: EOMI, no lid lag, anicteric sclera Mouth: no lip lesion, mucus membranes moist, no tongue swelling, no drooling Cardiovascular: S1S2 reg, no murmur, positive posterior tibial pulse bilateral, Lungs: CTA bilateral, no rhonchi, no rales , no accessory muscle use Abdominal: soft, nontender to palpation, no guarding, no appreciable organomegaly Psych: Alert, oriented, appropriate affect Objective - Vital Signs Vital signs: Vital Signs Temp 98.2 F 12/30/20 07:07 Pulse 91 12/30/20 07:07 Resp 18 12/30/20 08:10 BP 138/63 12/30/20 07:07 Pulse Ox 94 L 12/30/20 08:28 Intake & Output 12/29/20 12/30/20 12/30/20 18:59 06:59 18:59 Intake Total 93.116 Output Total 2750 1200 Balance -2656.884 -1200 Weight 64.8 kg Intake: Intake, IV Titration 93.116 Amount Ropivacaine 250 mg 93.116 fentaNYL (PF) 625 mcg In Sodium Chloride 0.9% 188 ml @ Per Protocol EPIDURAL .Q0M PRN Rx#: [id number] Output: Urine 2750 1200 Uretheral (Grewal) 1300 Other: Voiding Method Indwelling Catheter Indwelling Catheter # Voids 1 2 - Labs CBC & Chem 7: 12/29/20 09:41 12/29/20 09:41 Labs: Microbiology - Last 24 Hours (Table) 12/28/20 12:50 Gram Stain - Final Other - Other Wound Culture - Final Citrobacter freundii Klebsiella pneumoniae
[2020-12-30] MEDS ORDERED: diphenhydrAMINE 50 MG/ML 1 ML VIAL IVP STA (13:22)
--- NOTE | 2020-12-30 13:28 | P.PN ---
Progress Note - Text Progress Note Date: 12/30/20 Called to the bedside with patient's reports of developing urticaria over her arms and legs status post eating orange Jell-O. Patient initially stated she felt some tingling in the back of her throat but states this has resolved. Patient had no signs of swelling of tongue, throat, lips or experiencing any respiratory difficulties. Patient did have noted raised urticaria on bilateral arms and right leg. Patient given Benadryl 25 mg IVP 1 dose. At this time we will hold off on steroids due to postsurgical status as ALLERGIC symptoms have improved and nearly resolved.
--- NOTE | 2020-12-30 17:10 | CDI ---
Documentation Clarification Form Date: 12/30/2020 04:27:10 PM From: Silke Silverio RN, CCDS Admit Date: 12/28/2020 08:47:00 AM Patient Name: Caity Cohen Visit Number: [id number] Discharge Date: ATTENTION: The Clinical Documentation Specialists (CDI) and [facility] Coding Staff appreciate your assistance in clarifying documentation. Please respond to the clarification below the line at the bottom and electronically sign. The CDI & [facility] Coding staff will review the response and follow-up if needed. Please note: Queries are made part of the Legal Health Record. If you have any questions, please contact the author of this message via ITS. Dr. Stanislaw Mercer 12/29/20 Medical consult and subsequent progress note: acute hypoxic respiratory failure secondary to atelectasis is documented] and patient had low anterior resection with partial omentecomy on . Additional clarification is requested regarding the relationship, if any, that exists between the diagnosis and the procedure. Patients Admitting Diagnosis: Acute diverticulitis with pelvic abscess Post-Operative Diagnosis: same Procedure performed: Low anterior resection with partial omenectomy. History/Risk Factors: COPD, Pulmonary Embolism, Hypertension, Diverticulitis, current every day smoker Clinical Indicators: 75-year-old female present for elective procedure for acute diverticulitis with pelvic abscess on 12/28/20. Progress notes on 12/29 has patient with acute hypoxic respiratory failure secondary to atelectasis. Patient endorses cough but denies any shortness of breath at this moment. 12/29 Vital signs 07:16 117/66 78 18 97.9 93 % 2L NC 12/30 Vital signs: 07:07 138/6 81 18 98.2 90 % 4L NC 12/29 CXR: Pneumoperitoneum is likely postoperative. Basilar atelectasis suspected 12/30 Progress note: She remains on 2/L O2 via NC with SPO2 94 %. Lungs respirations even, regular and unlabored on 2/L. Lungs CTA bilaterally, no rhonchi, no rales, no wheezing, and no accessory muscle usage. Treatment: Incentive spirometry 10 times every hour reinforced to the patient DuoNeb (Symbocort 160-4.5 Mcg inhaler BID Singulair 10MG PO HS What relationship, if any, exists between the acute hypoxic respiratory failure secondary to atelectasis and the procedure? [ ] Acute hypoxic respiratory failure secondary to atelectasis is a complication of surgical procedure [ x ] Acute hypoxic respiratory failure secondary to atelectasis is an expected outcome of the surgical procedure [ ] [Acute hypoxic respiratory failure secondary to atelectasis is related to patients co-morbid condition(s) of [insert co-morbid dxs] & not a complication of the procedure [ ] Acute hypoxic respiratory failure secondary to atelectasis] has been ruled out [ ] Other please specify ____ [ ] Unable to determine (Template Last Revised: April 2020) MTDD
[2020-12-30] MEDS: ATORVASTATIN 20 MG TAB PO SCH (21:50)
[2020-12-30] MEDS: MONTELUKAST 10 MG TAB PO SCH (21:50)
[2020-12-30] MEDS: RALOXIFENE 60 MG TAB PO SCH (21:50)
[2020-12-31] MEDS: PIPERACILLIN-TAZOBACTAM 3.375 GM in SODIUM CHLORIDE 0.9% 100 ML IVPB SCH ×3 (02:22→16:36)
[2020-12-31] MEDS: D5-0.45% NACL WITH KCL 20MEQ/L 1,000 ML IV SCH ×3 (02:33→15:25)
[2020-12-31] MEDS: LACTATED RINGERS 1,000 ML IV SCH (07:18)
[2020-12-31] MEDS: HYDROmorphone 1 MG/ML 1 ML SYRINGE IVP PRN ×3 (07:24→20:55)
[2020-12-31] MEDS: APIXABAN 5 MG TAB PO SCH ×2 (07:25→20:55)
[2020-12-31] MEDS: METOPROLOL TARTRATE 25 MG TAB PO SCH ×2 (07:25→20:56)
[2020-12-31] MEDS: CYANOCOBALAMIN 500 MCG TAB PO SCH (07:25)
[2020-12-31] MEDS: LEVOTHYROXINE 100 MCG TAB PO SCH (07:25)
[2020-12-31] MEDS: ALVIMOPAN 12 MG CAPSULE PO SCH ×2 (07:25→20:55)
[2020-12-31] MEDS: PANTOPRAZOLE 40 MG TABLET PO SCH (07:25)
[2020-12-31] MEDS: SIMETHICONE 40 MG/0.6 ML DROPS 2,000 MG/30 ML BOTTLE PO SCH ×4 (07:26→22:54)
[2020-12-31] MEDS: SYMBICORT 160-4.5 MCG INHALER INHALATION SCH ×2 (09:34→19:46)
[2020-12-31 10:43] LABS: HCT 41.1 % (37.2-46.3); HGB 13.3 g/dL (12.0-15.0); MCHC 32.4 g/dL (32.0-37.0); MCV 98.8 fL (80.0-97.0); Mean Platelet Volume 10.5 fL (9.5-12.2); Platelet Count 174 X 10*3/uL (140-440); RBC 4.16 X 10*6/uL (4.10-5.20); RDW 13.2 % (11.5-14.5)
[2020-12-31 11:26] LABS: African American GFR (CKD) 108.7 (60.0-200.0); Anion Gap 10.7 mmol/L (4.00-12.00); BUN/Creat Ratio 5.37 Ratio (12.00-20.00); Blood Urea Nitrogen 2.8 mg/dL (9.0-27.0); Calcium 10.1 mg/dL (8.7-10.3); Carbon Dioxide 25.8 mmol/L (21.6-31.8); Magnesium 1.3 mg/dL (1.5-2.4); Non-African American GFR(CKD) 93.8 (60.0-200.0); Potassium 3.7 mmol/L (3.5-5.5)
--- NOTE | 2020-12-31 11:49 | P.PN ---
Subjective Progress Note Date: 12/31/20 CHIEF COMPLAINT: Diverticulitis with pelvic abscess HISTORY OF PRESENT ILLNESS: Patient is status post lower anterior resection and partial omentectomy. Postop day #3. Patient complains of incisional abdominal pain. It is controlled with pain medications. Denies any nausea or vomiting. Denies any flatus. She has been up and ambulating. Afebrile. WBC 9.0 Hgb 13.3 sodium 138 potassium 3.7 CR 0.5 magnesium 1.3 Patient's epidural was discontinued yesterday due to a leaking. She does report her pain is controlled. She denies any flatus. She did have some nausea this morning but that has improved after drinking harrison luzmaria. She is laying in bed. She does report pain with ambulating. Her gas pains have improved. Grewal catheter removed. Patient urinating without difficulty. Afebrile. No new labs. Eliquis resumed yesterday PHYSICAL EXAM: VITAL SIGNS: Reviewed. GENERAL: Well-developed in no acute distress. HEENT: No sclera icterus. Extraocular movements grossly intact. Moist buccal mucosa. Head is atraumatic, normocephalic. ABDOMEN: Soft. Nondistended. Incisional dressing a few areas of small amount of bleeding noted NEUROLOGIC: Alert and oriented. Cranial nerves II through XII grossly intact. ASSESSMENT: 1. Diverticulitis with pelvic abscess status post lower anterior resection and partial omentectomy 2. Hypomagnesemia PLAN: -Continue clear liquid diet -Continue IV fluids -Continue pain medication as needed -Encourage patient to ambulate -Encourage patient to use incentive spirometer -Continue antibiotics -Replace magnesium -GI prophylaxis Protonix and DVT prophylaxis Eliquis Physician Consultant Rn note has been reviewed by physician. Signing provider agrees with the documented findings, assessment, and plan of care. Objective - Vital Signs Vital signs: Vital Signs Temp 98.4 F 12/31/20 08:00 Pulse 95 12/31/20 08:00 Resp 16 12/31/20 08:00 BP 117/72 12/31/20 08:00 Pulse Ox 95 12/31/20 08:00 Intake & Output 12/30/20 12/31/20 12/31/20 18:59 06:59 18:59 Output Total 1300 1000 Balance -1300 -1000 Output: Urine 1300 1000 Other: Voiding Method Indwelling Catheter Toilet # Voids 1 - Labs CBC & Chem 7: 12/31/20 06:58 12/31/20 07:06 Labs: Abnormal Lab Results - Last 24 Hours (Table) 12/31/20 12/31/20 Range/Units 06:58 07:06 MCV 98.8 H (80.0-97.0) fL BUN 2.8 L (9.0-27.0) mg/dL Creatinine 0.5 L (0.6-1.5) mg/dL BUN/Creatinine Ratio 5.37 L (12.00-20.00) Ratio Glucose 130 H (70-110) mg/dL Magnesium 1.3 L (1.5-2.4) mg/dL Microbiology - Last 24 Hours (Table) 12/28/20 12:50 Gram Stain - Final Other - Other Wound Culture - Final Citrobacter freundii Klebsiella pneumoniae
[2020-12-31] MEDS ORDERED: MAGNESIUM SULFATE-D5W PMX 1 GM in DEXTROSE/WATER 1 100ML.BAG IVPB SCH (12:00)
[2020-12-31] MEDS: MAGNESIUM SULFATE-D5W PMX 1 GM in DEXTROSE/WATER 1 100ML.BAG IVPB SCH ×4 (12:15→15:24)
--- NOTE | 2020-12-31 12:27 | CDI ---
Documentation Clarification Form Date: 12/31/2020 12:09:31 PM From: Silke Silverio RN, CCDS Admit Date: 12/28/2020 08:47:00 AM Patient Name: Caity Cohen Visit Number: [id number] Discharge Date: ATTENTION: The Clinical Documentation Specialists (CDI) and [facility] Coding Staff appreciate your assistance in clarifying documentation. Please respond to the clarification below the line at the bottom and electronically sign. The CDI & [facility] Coding staff will review the response and follow-up if needed. Please note: Queries are made part of the Legal Health Record. If you have any questions, please contact the author of this message via ITS. Dr. Reynold Soto Pneumoperitoneum likely postoperative with basilar atelectasis is documented in the medical process note on 12/30/20, and patient had low anterior resection and partial omentectomy on 12/28/20. Additional clarification is requested regarding the relationship, if any, that exists between the diagnosis and the procedure. Patients Admitting Diagnosis: Acute Diverticulitis Post-Operative Diagnosis: Diverticulitis with pelvic abscess Procedure performed: Low anterior resection, partial omentectomy History/Risk Factors: Diverticulitis, COPD, Pulmonary Embolism, Hypertension, current every day smoker Clinical Indicators: 75-year-old female present for elective procedure for acute diverticulitis with pelvic abscess on 12/28/20. 12/29 Vital signs 07:16 117/66 78 18 97.9 93 % 2L NC 12/29 CXR: Pneumoperitoneum is likely postoperative. Basilar atelectasis suspected Treatment: Incentive spirometry 10 times every hour reinforced to the patient DuoNeb (Symbocort 160-4.5 Mcg inhaler BID Singulair 10MG PO HS Encourage patient to ambulate What relationship, if any, exists between the diagnosis of pneumoperitoneum likely postoperative with basilar atelectasis and the procedure: [ ] Pneumoperitoneum likely postoperative with basilar atelectasis is a complication of surgical procedure [ x] Pneumoperitoneum likely postoperative with basilar atelectasis is an expected outcome of the surgical procedure [ ] Pneumoperitoneum likely postoperative with basilar atelectasis] is related to patients co-morbid condition(s) of [insert co-morbid dxs] & not a complication of the procedure [ ] Pneumoperitoneum likely postoperative with basilar atelectasis] has been ruled out [ ] Other please specify ____ [ ] Unable to determine (Template Last Revised: April 2020) MTDD
--- NOTE | 2020-12-31 12:57 | P.PN ---
<Aaron Dyer - Last Filed: 12/31/20 12:51> Subjective Progress Note Date: 12/31/20 FORMERLY NAMED [facility] IS PROVIDING COVERAGE FOR [employer] [facility] (DR. MOE, DR. WILKINS, AND DR. LENZ) ON 12/30/20-12/31/20 PLEASE CONTACT US ON PERFECT SERVE WITH ANY QUESTIONS, NEEDS, OR CONCERNS. Hospital course: Patient is a very pleasant 75-year-old female with a past medical history of pulmonary embolism on anticoagulation with Eliquis, hypertension, hyperlipidemia, diverticulosis, COPD, nicotine dependence and hypothyroidism. Patient underwent low anterior resection and partial omentectomy completed on 12/28/[address] Soto secondary to diverticulitis with pelvic abscess. Hospitalist medicine consulted for medical management throughout patient's hospital stay. Physical exam: Patient seen and fully evaluated at the bedside this morning. She his postoperative day 3 and reports feeling great this morning. She continues to deny having a bowel movement or passing any flatus in postoperative period. She denies any headache, lightheadedness, chest pain, palpitations, shortness of breath, cough, congestion, nausea or vomiting. She is tolerating a clear liquid diet at this time and diet to be advanced as recommended by primary general surgery team. Patient's oxygen needs have increased she is on 4 L O2 via nasal cannula with SpO2 of 95% this morning. Patient turned down to 3 and we will reevaluate pulse oximetry at this time. Patient denies having any shortness of breath, cough, congestion, chest pain, palpitations, or any other complaints at this time. Order placed for repeat chest x-ray and patient again educated on the importance of incentive spirometer use 10-15 times hourly while awake. Magnesium 1.3, orders for 4 g magnesium IVPB for replacement. Vital signs reviewed and stable. General: Nontoxic, no distress and appears stated age. Derm: Skin warm and dry, normal coloration for ethnicity. surgical incision midline with dressing intact mild shadowing of dried blood, no surrounding erythema or drainage noted. Head: Atraumatic, normocephalic and symmetric. Eyes: EOMs intact, no lid lag, and anicteric sclera Mouth: no lip lesions, mucus membranes moist Cardiovascular: regular rate and rhythm with normal S1S2, no murmur, positive posterior tibial pulses bilaterally, and cap refill < 2 seconds. Lungs: Respirations even, regular, and unlabored on 2L O2 via NC. Lungs CTA bilaterally, no rhonchi, no rales, no wheezing, and no accessory muscle usage. Abdominal: soft, nontender to palpation, no guarding, no appreciable organomegaly Ext: ROM intact. No gross muscle atrophy, no edema, no contractures Neuro: Speech clear, face symmetrical and CN II-XII grossly intact with no noted focal neuro deficits Psych: Alert and oriented to person, place, time, and situation. Appropriate and pleasant affect. Assessment and Plan of Care: Acute Diverticulitis with pelvic abscess Status post low anterior resection and partial omentectomy completed on 12/28/[address] Soto Pelvic abscess cultures positive for Klebsiella pneumoniae and Citrobacter freundii -Management per primary admitting general surgery team -Aerobic Wound culture from pelvic abscess positive for Klebsiella pneumoniae and Citrobacter freundii -Continue IV antibiotic therapy with Zosyn. -Continue clear liquid diet and advance as directed by general surgery team. -Encourage incentive spirometry and ambulation. -Close monitoring of intake and output. Hypomagnesemia Magnesium 1.3, replaced We will continue to monitor with repeat a.m. labs. Acute hypoxic respiratory failure secondary to atelectasis COPD, Not in acute exacerbation -Chest x-ray revealing Pneumonperitoneum likely postoperative with basilar atelectasis -Patient again encouraged to use incentive spirometry 10-15 times hourly while awake -Encourage ambulation, out of bed with all meals -continue oxygen supplementation to maintain SpO2 equal to or greater than 90%, wean once patient tolerates, currently on 3 L with SpO2 of 94% -DuoNeb's as needed for shortness of breath. -Continue Breo Elipta ALLERGIC reaction during hospitalization -Patient had an ALLERGIC reaction to orange Jell-O during hospitalization. This immediately caused a scratchy feeling to back of patient's throat followed by hives to bilateral arms and legs. Scratchiness tube back of throat resolved after a few short moments and patient showed no signs of angioedema, hives to bilateral upper and lower extremities improving and patient given 1 dose of Benadryl IVP. -Patient advised to stay away from orange Jell-O or anything with orange dye coloration in the future. History of pulmonary embolism on anticoagulation with Eliquis -Eliquis was resumed as recommended by surgical team. Continue anticoagulation, encourage ambulation Hypertension Monitor vital signs and continue daily medication regimen with metoprolol 25 mg twice daily. Hyperlipidemia Continue daily medication regimen with atorvastatin 20 mg nightly Hypothyroidism Continue daily medication regimen with [id number] mcg each morning. Thank you for allowing us to participate in the care of this pleasant patient. Do not hesitate to contact us with questions. Someone can be reached from the [facility] hospitalist group all hours of the day at [phone] or via perfect serve. Objective - Vital Signs Vital signs: Vital Signs Temp 98.5 F 12/31/20 02:00 Pulse 97 12/31/20 02:00 Resp 17 12/31/20 02:00 BP 144/65 12/31/20 02:00 Pulse Ox 98 12/31/20 02:00 Intake & Output 12/30/20 12/31/20 12/31/20 18:59 06:59 18:59 Output Total 1300 1000 Balance -1300 -1000 Output: Urine 1300 1000 Other: Voiding Method Indwelling Catheter # Voids 1 - Labs CBC & Chem 7: 12/31/20 06:58 12/31/20 07:06 Labs: Microbiology - Last 24 Hours (Table) 12/28/20 12:50 Gram Stain - Final Other - Other Wound Culture - Final Citrobacter freundii Klebsiella pneumoniae <Caroline Gonzalez - Last Filed: 12/31/20 13:47> Subjective Patient seen and examined independently. Patient was also seen by Aaron Dyer NP and case was discussed. I am in agreement with subjective, physical exam, assessment and plan as written above and amended below. Patient seen and examined at bedside. She has not passed flatus or had a bowel movement yet. She denies any nausea or vomiting. She is tolerating her clear liquid diet. Pain is well controlled. General: non toxic, no distress, appears at stated age Derm: warm, dry Head: atraumatic, normocephalic, symmetric Cardiovascular: S1S2 reg, no murmur, positive posterior tibial pulse bilateral, Lungs: Decreased bs bilateral, no rhonchi, no rales , no accessory muscle use Abdominal: soft, + tender to palpation diffusely, no guarding, no appreciable organomegaly Ammann dressing in the midline incision Ext: no gross muscle atrophy, no edema, no contractures Psych: Alert, oriented, appropriate affect Acute hypoxic respiratory failure - CXR review with pleural effusion, will decreased IVF, patient is on clear lqiuid diet. Objective - Vital Signs Vital signs: Vital Signs Temp 98.4 F 12/31/20 08:00 Pulse 95 12/31/20 08:00 Resp 16 12/31/20 08:00 BP 117/72 12/31/20 08:00 Pulse Ox 95 12/31/20 08:00 Intake & Output 12/30/20 12/31/20 12/31/20 18:59 06:59 18:59 Output Total 1300 1000 Balance -1300 -1000 Output: Urine 1300 1000 Other: Voiding Method Indwelling Catheter Toilet # Voids 1 - Labs CBC & Chem 7: 12/31/20 06:58 12/31/20 07:06 Labs: Abnormal Lab Results - Last 24 Hours (Table) 12/31/20 12/31/20 Range/Units 06:58 07:06 MCV 98.8 H (80.0-97.0) fL BUN 2.8 L (9.0-27.0) mg/dL Creatinine 0.5 L (0.6-1.5) mg/dL BUN/Creatinine Ratio 5.37 L (12.00-20.00) Ratio Glucose 130 H (70-110) mg/dL Magnesium 1.3 L (1.5-2.4) mg/dL Microbiology - Last 24 Hours (Table) 12/28/20 12:50 Gram Stain - Final Other - Other Wound Culture - Final Citrobacter freundii Klebsiella pneumoniae
--- NOTE | 2020-12-31 13:20 | XR ---
EXAMINATION TYPE: XR chest 1V portable DATE OF EXAM: 12/31/2020 COMPARISON: 12/29/2020 HISTORY: Cough TECHNIQUE: Single frontal view of the chest is obtained. FINDINGS: There remains a large amount of free intraperitoneal air as previously reported. Subsegmen maria antonia basilar consolidation evidence of emphysema. Heart size normal. Atherosclerotic change aorta. Dif fuse osteopenia and arthropathy of the shoulders. IMPRESSION: 1. COPD with basilar atelectasis favored over pneumonia. Small right pleural effusion. 2. There remains a large amount of free intraperitoneal air correlate clinically. Findings similar to recent exam.
[2020-12-31] MEDS: ATORVASTATIN 20 MG TAB PO SCH (20:56)
[2020-12-31] MEDS: MONTELUKAST 10 MG TAB PO SCH (20:56)
[2020-12-31] MEDS: RALOXIFENE 60 MG TAB PO SCH (22:52)
[2021-01-01] MEDS: PIPERACILLIN-TAZOBACTAM 3.375 GM in SODIUM CHLORIDE 0.9% 100 ML IVPB SCH ×3 (00:54→17:24)
[2021-01-01] MEDS: D5-0.45% NACL WITH KCL 20MEQ/L 1,000 ML IV SCH ×2 (00:54→14:40)
[2021-01-01] MEDS: HYDROmorphone 1 MG/ML 1 ML SYRINGE IVP PRN ×5 (03:57→20:28)
[2021-01-01] MEDS: LEVOTHYROXINE 100 MCG TAB PO SCH (06:07)
[2021-01-01] MEDS: ALVIMOPAN 12 MG CAPSULE PO SCH ×2 (08:39→20:30)
[2021-01-01] MEDS: METOPROLOL TARTRATE 25 MG TAB PO SCH ×2 (08:39→20:30)
[2021-01-01] MEDS: CYANOCOBALAMIN 500 MCG TAB PO SCH (08:39)
[2021-01-01] MEDS: ONDANSETRON 4 MG/2 ML VIAL IVP PRN (08:39)
[2021-01-01] MEDS: APIXABAN 5 MG TAB PO SCH ×2 (08:39→20:29)
[2021-01-01] MEDS: PANTOPRAZOLE 40 MG TABLET PO SCH (08:39)
[2021-01-01] MEDS: SYMBICORT 160-4.5 MCG INHALER INHALATION SCH ×2 (09:15→19:54)
--- NOTE | 2021-01-01 09:47 | P.PN ---
Subjective Progress Note Date: 01/01/21 Principal diagnosis: Diverticulitis Patient is doing fairly well today. Says her pain is gradually improving. Some nausea today. No flatus or bowel movement yet. She remains on clear liquids. Objective - Vital Signs Vital signs: Vital Signs Temp 97.9 F 01/01/21 07:53 Pulse 80 01/01/21 07:53 Resp 18 01/01/21 07:53 BP 136/70 01/01/21 07:53 Pulse Ox 97 01/01/21 07:53 Intake & Output 12/31/20 01/01/21 01/01/21 18:59 06:59 18:59 Intake Total 1200 1600 Balance 1200 1600 Weight 64.8 kg Intake: IV 1200 1200 D5-0.45% NaCl with KCl 800 1200 20Meq/l 1,000 ml @ 125 mls/hr IV .Q8H [facility] Rx#: [id number] Magnesium Sulfate-D5w Pmx 400 1 gm In Dextrose/Water 1 100ml.bag @ 100 mls/hr IVPB Q1H [facility] Rx#: [id number] Intake, IV Titration 100 Amount Piperacillin-Tazobactam 3 100 .375 gm In Sodium Chloride 0.9% 100 ml @ 25 mls/hr IVPB Q8H [facility] Rx#: [id number] Oral 300 Other: Voiding Method Toilet Toilet Toilet # Voids 5 - Exam Abdomen: Soft, nondistended, mild tenderness, dressing clean and dry - Labs CBC & Chem 7: 12/31/20 06:58 12/31/20 07:06 Labs: Abnormal Lab Results - Last 24 Hours (Table) 12/31/20 12/31/20 Range/Units 06:58 07:06 MCV 98.8 H (80.0-97.0) fL BUN 2.8 L (9.0-27.0) mg/dL Creatinine 0.5 L (0.6-1.5) mg/dL BUN/Creatinine Ratio 5.37 L (12.00-20.00) Ratio Glucose 130 H (70-110) mg/dL Magnesium 1.3 L (1.5-2.4) mg/dL Microbiology - Last 24 Hours (Table) 12/28/20 12:50 Anaerobic Culture - Preliminary Other - Other Assessment and Plan (1) Diverticulitis Narrative/Plan: Continue clears. May advance of flatus is noted and nausea improved. Ambulate. Continue analgesics. Current Visit: Yes Status: Acute Code(s): K57.92 - DVTRCLI OF INTEST, PART UNSP, W/O PERF OR ABSCESS W/O BLEED SNOMED Code(s): 611749203
[2021-01-01] MEDS: SIMETHICONE 40 MG/0.6 ML DROPS 2,000 MG/30 ML BOTTLE PO SCH ×4 (11:09→20:30)
[2021-01-01] MEDS: LACTATED RINGERS 1,000 ML IV SCH (11:09)
--- NOTE | 2021-01-01 12:44 | P.PN ---
Subjective Progress Note Date: 01/01/21 History of present illness 75 years old female with past medical his of COPD, history of pulmonary embolism in May 2018 on Eliquis, GERD, hyperlipidemia, hypertension, hypothyroidism who is admitted under Dr. Wilkinson care for acute diverticulitis with pelvic abscess status post low anterior resection and partial omentectomy on 12/28. Patient was seen today for medical management. Patient endorses abdominal bloating associated with constipation. She is currently on epidural with fentanyl for pain control. Patient denies any nausea or vomiting. She denies any chest pain, shortness of breath. Patient was not passing any flatus or having any bowel movement. She does complain of gas pain in the shoulder. Vitals were reviewed patient is afebrile pulse 77 respiratory rate 70 blood pressure 111/54 oxygen saturation 93% on 2 L. Patient endorses cough but denies any shortness of breath at this moment. Labs ordered patient's WBC is 8.7 hemoglobin 12.9 sodium 135 potassium 3.9 BUN 5 creatinine 0.5 bicarb of 33 glucose 147 ESR elevated. CRP elevated at 15.2, rotavirus detected. 01/01: Patient is resting comfortably in bed. This is postop day 4. incision is clean and dry, patient has not bowel movement she is passing gas. Is having some nausea with pain. She is tolerating clear liquid diet. Patient remains afebrile, heart rate 80, respirations 18, blood pressure 136/70, pulse ox 97% on 3 L. Review of systems Constitutional: Denies chills, Denies fever, Denies lethargy, Denies malaise, Denies poor appetite, Denies weakness, Denies weight loss Eyes: denies decreased vision, denies diplopia, denies discharge, denies pain Ears: deny: decreased hearing Ears, nose, mouth and throat: Denies dental pain, Denies headache, Denies nasal discharge, Denies nose pain Cardiovascular: Denies chest pain, Denies decreased exercise tolerance, Denies edema, Denies high blood pressure, Denies irregular heart beat, Denies palpita tions, Denies paroxysmal nocturnal dyspnea, Denies rapid heart beat, Denies shortness of breath Respiratory: Denies congestion, endorses dry cough, Denies cough with sputum, D enies dyspnea, Denies home oxygen, Denies wheezing Gastrointestinal: Endorses abdominal pain, endorses bloating Denies change in bowel habits, Denies coffee ground emesis, Denies early satiety, endorses excessive gas, Denies heartburn, Denies hematemesis, Denies hematochezia, Denies loss of appetite, Denies nausea, Denies vomiting Genitourinary: Denies dysuria, Denies flank pain, Denies kidney stones, Denies menorrhagia, Denies urgency, Denies urinary frequency Musculoskeletal: Denies gait dysfunction, Denies limitation of motion, Denies morning stiffness, Denies muscle cramps Integumentary: Denies rash, Denies wounds, Denies brittle nails, Denies change in hair/nails, Denies darkening of skin Neurological: Denies balance difficulties, Denies change in speech, Denies double vision, Denies gait dysfunction, Denies loss of vision, Denies motor disturbance, Denies numbness, Denies paralysis, Denies paresthesias, Denies seizures Psychiatric: Denies anxiety, Denies depression Endocrine: Denies excessive sweating, Denies excessive thirst, Denies high blood sugars, Denies palpitations Hematologic/Lymphatic: Denies easy bruising, Denies lymphadenopathy Physical exam General Appearance: Alert, cooperative, no distress, appears stated age. Neck HEENT: Supple, no lymphadenopathy, no thyroid enlargement, no carotid bruits. Lungs: Clear to auscultation without crackles or wheezes no rhonchi, no deformity. Chest Wall: Chest wall normal expansion with deep inspiration no tenderness and no deformity was found on exam, no costochondral pain or discomfort. Heart: Regular rate and rhythm, S1, S2 normal, no murmur, rub or gallop. Back: Symmetric, no curvature, ROM normal, no CVA tenderness. Abdomen: Soft, non-tender, no rebound or rigidity, no hepatosplenomegaly. Extremities: Extremities normal, atraumatic, no cyanosis or edema. Pulses: 2+ and symmetric. Skin: Skin color, texture, tugor normal, no rashes or lesions. Neurologic: Alert oriented x3 cranial nerves II through XII intact, no motor deficit, no abnormal balance or gait Assessment and plan 1. acute diverticulitis with pelvic abscess status post low anterior resection with partial omentectomy on 12/28 continue clear liquid diet. Continue epidural for pain control. Patient would benefit from simethicone for bloating. Zosyn initiated at 3.375 every 6 hours for pelvic abscess. 2. acute hypoxic respiratory failure secondary to atelectasis no pneumonia noted. Chest x-ray ordered. Incentive's spirometry 10 times every hour reinforced to the patient. 3. COPD not in exacerbation continue DuoNeb as needed for shortness of breath. Continue breo ellipta 4. pulmonary embolism on Eliquis. We will discuss with surgery team if they're comfortable restarting Eliquis at this moment. 5. hypertension continue metoprolol 25 twice a day 6. hyperlipidemia continue Crestor 10 mg daily at bedtime 7. hypothyroidism continue Synthyroid at 100 g by mouth daily 8. DVT prophylaxis on heparin every 12 CODE STATUS full code Discharge plan: Home possibly Sunday Thank you for the consult. We'll happy to assist patient's medical needs while patient is in the hospital. Impression and plan of care have been directed as dictated by the signing physician. Nelda Goldstein nurse practitioner acting as scribe for signing physician. Objective - Vital Signs Vital signs: Vital Signs Temp 97.9 F 01/01/21 07:53 Pulse 80 01/01/21 07:53 Resp 18 01/01/21 07:53 BP 136/70 01/01/21 07:53 Pulse Ox 97 01/01/21 07:53 Intake & Output 12/31/20 01/01/21 01/01/21 18:59 06:59 18:59 Intake Total 1200 1600 Balance 1200 1600 Weight 64.8 kg Intake: IV 1200 1200 D5-0.45% NaCl with KCl 800 1200 20Meq/l 1,000 ml @ 125 mls/hr IV .Q8H [facility] Rx#: [id number] Magnesium Sulfate-D5w Pmx 400 1 gm In Dextrose/Water 1 100ml.bag @ 100 mls/hr IVPB Q1H [facility] Rx#: [id number] Intake, IV Titration 100 Amount Piperacillin-Tazobactam 3 100 .375 gm In Sodium Chloride 0.9% 100 ml @ 25 mls/hr IVPB Q8H [facility] Rx#: [id number] Oral 300 Other: Voiding Method Toilet Toilet Toilet # Voids 5 - Labs CBC & Chem 7: 12/31/20 06:58 12/31/20 07:06 Labs: Microbiology - Last 24 Hours (Table) 12/28/20 12:50 Anaerobic Culture - Preliminary Other - Other
[2021-01-01] MEDS: RALOXIFENE 60 MG TAB PO SCH (20:29)
[2021-01-01] MEDS: ATORVASTATIN 20 MG TAB PO SCH (20:29)
[2021-01-01] MEDS: MONTELUKAST 10 MG TAB PO SCH (20:29)
[2021-01-02] MEDS: D5-0.45% NACL WITH KCL 20MEQ/L 1,000 ML IV SCH ×4 (01:00→17:09)
[2021-01-02] MEDS: PIPERACILLIN-TAZOBACTAM 3.375 GM in SODIUM CHLORIDE 0.9% 100 ML IVPB SCH ×3 (01:58→17:12)
[2021-01-02] MEDS: LEVOTHYROXINE 100 MCG TAB PO SCH (06:20)
[2021-01-02] MEDS: HYDROmorphone 1 MG/ML 1 ML SYRINGE IVP PRN ×3 (06:21→21:55)
[2021-01-02] MEDS: SYMBICORT 160-4.5 MCG INHALER INHALATION SCH ×2 (07:18→19:28)
[2021-01-02] MEDS: SIMETHICONE 40 MG/0.6 ML DROPS 2,000 MG/30 ML BOTTLE PO SCH ×4 (08:12→20:28)
[2021-01-02] MEDS: ALVIMOPAN 12 MG CAPSULE PO SCH ×2 (08:13→20:24)
[2021-01-02] MEDS: METOPROLOL TARTRATE 25 MG TAB PO SCH ×2 (08:13→20:27)
[2021-01-02] MEDS: CYANOCOBALAMIN 500 MCG TAB PO SCH (08:13)
[2021-01-02] MEDS: PANTOPRAZOLE 40 MG TABLET PO SCH (08:13)
[2021-01-02] MEDS: APIXABAN 5 MG TAB PO SCH ×2 (08:13→20:27)
[2021-01-02 08:48] LABS: Basophils % (A) 1 %; Eosinophils # (A) 0.2 k/uL (0-0.7); Eosinophils % (A) 3 %; HCT 34.9 % (34.0-46.0); HGB 11.6 gm/dL (11.4-16.0); Lymphocytes # (A) 1.1 k/uL (1.0-4.8); Lymphocytes % (A) 22 %; MCH 33.4 pg (25.0-35.0); MCHC 33.1 g/dL (31.0-37.0); MCV 100.9 fL (80.0-100.0); Macrocytosis Slight; Mean Platelet Volume 7.9; Monocytes # (A) 0.3 k/uL (0-1.0); Monocytes % (A) 6 %; Neutrophils # (A) 3.4 k/uL (1.3-7.7); Neutrophils % (A) 67 %; Platelet Count 193 k/uL (150-450); RBC 3.46 m/uL (3.80-5.40); RDW 13.5 % (11.5-15.5)
[2021-01-02 09:00] LABS: African American GFR (CKD) >90 (>60 ml/min/1.73 sqM); Anion Gap 7 mmol/L; Blood Urea Nitrogen 4 mg/dL (7-17); Calcium 10.3 mg/dL (8.4-10.2); Carbon Dioxide 27 mmol/L (22-30); Chloride 103 mmol/L (98-107); Glucose 136 mg/dL (74-99); Non-African American GFR(CKD) >90 (>60 ml/min/1.73 sqM); Sodium 137 mmol/L (137-145)
--- NOTE | 2021-01-02 10:25 | P.PN ---
Subjective Progress Note Date: 01/02/21 Principal diagnosis: Diverticulitis Patient is doing better today. She is passing flatus. No bowel movement. Her pain was increased earlier but better now. White blood cell count and lactic acid normal this morning. Objective - Vital Signs Vital signs: Vital Signs Temp 97.7 F 01/02/21 07:44 Pulse 111 H 01/02/21 07:44 Resp 18 01/02/21 07:44 BP 124/64 01/02/21 07:44 Pulse Ox 92 L 01/02/21 07:44 Intake & Output 01/01/21 01/02/21 01/02/21 18:59 06:59 18:59 Intake Total 1500 Balance 1500 Intake: IV 1500 D5-0.45% NaCl with KCl 1500 20Meq/l 1,000 ml @ 125 mls/hr IV .Q8H [facility] Rx#: [id number] Other: Voiding Method Toilet Toilet # Voids 3 - Exam Abdomen: Soft mild tenderness, dressing clean and dry - Labs CBC & Chem 7: 01/02/21 08:35 01/02/21 08:06 Labs: Abnormal Lab Results - Last 24 Hours (Table) 01/02/21 01/02/21 Range/Units 08:06 08:35 RBC 3.46 L (3.80-5.40) m/uL MCV 100.9 H (80.0-100.0) fL BUN 4 L (7-17) mg/dL Creatinine 0.49 L (0.52-1.04) mg/dL Glucose 136 H (74-99) mg/dL Calcium 10.3 H (8.4-10.2) mg/dL Microbiology - Last 24 Hours (Table) 12/28/20 12:50 Anaerobic Culture - Final Other - Other Anaerobic Gm Negative Bacilli Assessment and Plan (1) Diverticulitis Narrative/Plan: Patient doing better. Increase diet to full liquids. Ambulate. Possible dis charge 2448 hrs. Current Visit: Yes Status: Acute Code(s): K57.92 - DVTRCLI OF INTEST, PART UNSP, W/O PERF OR ABSCESS W/O BLEED SNOMED Code(s): 069996655
[2021-01-02] MEDS: LACTATED RINGERS 1,000 ML IV SCH (10:43)
[2021-01-02] MEDS: HYDROcodone/APAP 7.5-325MG 1 EACH TAB PO PRN ×2 (10:53→17:08)
--- NOTE | 2021-01-02 11:43 | P.PN ---
Subjective Progress Note Date: 01/02/21 History of present illness 75 years old female with past medical his of COPD, history of pulmonary embolism in May 2018 on Eliquis, GERD, hyperlipidemia, hypertension, hypothyroidism who is admitted under Dr. Wilkinson care for acute diverticulitis with pelvic abscess status post low anterior resection and partial omentectomy on 12/28. Patient was seen today for medical management. Patient endorses abdominal bloating associated with constipation. She is currently on epidural with fentanyl for pain control. Patient denies any nausea or vomiting. She denies any chest pain, shortness of breath. Patient was not passing any flatus or having any bowel movement. She does complain of gas pain in the shoulder. Vitals were reviewed patient is afebrile pulse 77 respiratory rate 70 blood pressure 111/54 oxygen saturation 93% on 2 L. Patient endorses cough but denies any shortness of breath at this moment. Labs ordered patient's WBC is 8.7 hemoglobin 12.9 sodium 135 potassium 3.9 BUN 5 creatinine 0.5 bicarb of 33 glucose 147 ESR elevated. CRP elevated at 15.2, rotavirus detected. 01/01: Patient is resting comfortably in bed. This is postop day 4. incision is clean and dry, patient has not bowel movement she is passing gas. Is having some nausea with pain. She is tolerating clear liquid diet. Patient remains afebrile, heart rate 80, respirations 18, blood pressure 136/70, pulse ox 97% on 3 L. 01/02: She is resting comfortably in bed. This is postop day 5. Incision is clean and dry. Patient states that she is passing gas still did not have any bowel movements. She is denying any nausea or discomfort at this time. She is tolerating clear liquids more than likely will be advanced throughout today. Patient is hopeful to be going home in the next few days. Patient remains afebrile, heart rate 111, respirations 18, blood pressure 124/64, pulse ox 92% on 3 L. Review of systems Constitutional: Denies chills, Denies fever, Denies lethargy, Denies malaise, Denies poor appetite, Denies weakness, Denies weight loss Eyes: denies decreased vision, denies diplopia, denies discharge, denies pain Ears: deny: decreased hearing Ears, nose, mouth and throat: Denies dental pain, Denies headache, Denies nasal discharge, Denies nose pain Cardiovascular: Denies chest pain, Denies decreased exercise tolerance, Denies e jessie, Denies high blood pressure, Denies irregular heart beat, Denies palpitations, Denies paroxysmal nocturnal dyspnea, Denies rapid heart beat, Denies shortness of breath Respiratory: Denies congestion, endorses dry cough, Denies cough with sputum, Denies dyspnea, Denies home oxygen, Denies wheezing Gastrointestinal: Endorses abdominal pain improved, denies bloating, Denies change in bowel habits, Denies coffee ground emesis, Denies early satiety, endorses excessive gas, Denies heartburn, Denies hematemesis, Denies he matochezia, Denies loss of appetite, Denies nausea, Denies vomiting Genitourinary: Denies dysuria, Denies flank pain, Denies kidney stones, Denies menorrhagia, Denies urgency, Denies urinary frequency Musculoskeletal: Denies gait dysfunction, Denies limitation of motion, Denies morning stiffness, Denies muscle cramps Integumentary: Denies rash, Denies wounds, Denies brittle nails, Denies change in hair/nails, Denies darkening of skin Neurological: Denies balance difficulties, Denies change in speech, Denies double vision, Denies gait dysfunction, Denies loss of vision, Denies motor disturbance, Denies numbness, Denies paralysis, Denies paresthesias, Denies seizures Psychiatric: Denies anxiety, Denies depression Endocrine: Denies excessive sweating, Denies excessive thirst, Denies high blood sugars, Denies palpitations Hematologic/Lymphatic: Denies easy bruising, Denies lymphadenopathy Physical exam General Appearance: Alert, cooperative, no distress, appears stated age. Neck HEENT: Supple, no lymphadenopathy, no thyroid enlargement, no carotid bruits. Lungs: Clear to auscultation without crackles or wheezes no rhonchi, no deformity. Chest Wall: Chest wall normal expansion with deep inspiration no tenderness and no deformity was found on exam, no costochondral pain or discomfort. Heart: Regular rate and rhythm, S1, S2 normal, no murmur, rub or gallop. Back: Symmetric, no curvature, ROM normal, no CVA tenderness. Abdomen: Soft, non-tender, no rebound or rigidity, no hepatosplenomegaly. Incisional dressing clean and dry Extremities: Extremities normal, atraumatic, no cyanosis or edema. Pulses: 2+ and symmetric. Skin: Skin color, texture, tugor normal, no rashes or lesions. Neurologic: Alert oriented x3 cranial nerves II through XII intact, no motor deficit, no abnormal balance or gait Assessment and plan 1. acute diverticulitis with pelvic abscess status post low anterior resection with partial omentectomy on 12/28 continue clear liquid diet. Pain management [place] and Dilaudid for breakthrough. Patient would benefit from simethicone for bloating. Zosyn initiated at 3.375 every 6 hours for pelvic abscess. 2. acute hypoxic respiratory failure secondary to atelectasis no pneumonia noted. Chest x-ray ordered. Incentive's spirometry 10 times every hour reinforced to the patient. 3. COPD not in exacerbation continue DuoNeb as needed for shortness of breath. Continue breo ellipta 4. pulmonary embolism on Eliquis. We will discuss with surgery team if they're comfortable restarting Eliquis at this moment. 5. hypertension continue metoprolol 25 twice a day 6. hyperlipidemia continue Crestor 10 mg daily at bedtime 7. hypothyroidism continue Synthyroid at 100 g by mouth daily 8. DVT prophylaxis on heparin every 12 CODE STATUS full code Discharge plan: Home possibly Sunday/Sunday Thank you for the consult. We'll happy to assist patient's medical needs while patient is in the hospital. Impression and plan of care have been directed as dictated by the signing physician. Nelda Goldstein nurse practitioner acting as scribe for signing physician. Objective - Vital Signs Vital signs: Vital Signs Temp 97.7 F 01/02/21 07:44 Pulse 111 H 01/02/21 07:44 Resp 18 01/02/21 07:44 BP 124/64 01/02/21 07:44 Pulse Ox 92 L 01/02/21 07:44 Intake & Output 01/01/21 01/02/21 01/02/21 18:59 06:59 18:59 Intake Total 1500 Balance 1500 Intake: IV 1500 D5-0.45% NaCl with KCl 1500 20Meq/l 1,000 ml @ 125 mls/hr IV .Q8H [facility] Rx#: [id number] Other: Voiding Method Toilet Toilet # Voids 3 - Labs CBC & Chem 7: 01/02/21 08:35 01/02/21 08:06 Labs: Abnormal Lab Results - Last 24 Hours (Table) 01/02/21 01/02/21 Range/Units 08:06 08:35 RBC 3.46 L (3.80-5.40) m/uL MCV 100.9 H (80.0-100.0) fL BUN 4 L (7-17) mg/dL Creatinine 0.49 L (0.52-1.04) mg/dL Glucose 136 H (74-99) mg/dL Calcium 10.3 H (8.4-10.2) mg/dL Microbiology - Last 24 Hours (Table) 12/28/20 12:50 Anaerobic Culture - Final Other - Other Anaerobic Gm Negative Bacilli
[2021-01-02] MEDS: MONTELUKAST 10 MG TAB PO SCH (20:27)
[2021-01-02] MEDS: RALOXIFENE 60 MG TAB PO SCH (20:27)
[2021-01-02] MEDS: ATORVASTATIN 20 MG TAB PO SCH (20:27)
[2021-01-03] MEDS: PIPERACILLIN-TAZOBACTAM 3.375 GM in SODIUM CHLORIDE 0.9% 100 ML IVPB SCH ×3 (01:55→17:41)
[2021-01-03] MEDS: D5-0.45% NACL WITH KCL 20MEQ/L 1,000 ML IV SCH ×2 (01:56→11:25)
[2021-01-03] MEDS: HYDROcodone/APAP 7.5-325MG 1 EACH TAB PO PRN ×4 (01:56→15:50)
[2021-01-03] MEDS: HYDROmorphone 1 MG/ML 1 ML SYRINGE IVP PRN ×2 (04:44→21:59)
[2021-01-03] MEDS: LEVOTHYROXINE 100 MCG TAB PO SCH (05:57)
[2021-01-03] MEDS: LACTATED RINGERS 1,000 ML IV SCH ×2 (07:19→23:58)
[2021-01-03] MEDS: APIXABAN 5 MG TAB PO SCH ×2 (07:40→21:59)
[2021-01-03] MEDS: CYANOCOBALAMIN 500 MCG TAB PO SCH (07:40)
[2021-01-03] MEDS: PANTOPRAZOLE 40 MG TABLET PO SCH (07:40)
[2021-01-03] MEDS: METOPROLOL TARTRATE 25 MG TAB PO SCH ×2 (07:41→21:59)
[2021-01-03] MEDS: ALVIMOPAN 12 MG CAPSULE PO SCH ×2 (07:43→21:59)
[2021-01-03] MEDS: SIMETHICONE 40 MG/0.6 ML DROPS 2,000 MG/30 ML BOTTLE PO SCH ×4 (07:45→22:08)
[2021-01-03] MEDS: SYMBICORT 160-4.5 MCG INHALER INHALATION SCH ×2 (08:13→21:24)
--- NOTE | 2021-01-03 11:20 | P.PN ---
Subjective Progress Note Date: 01/03/21 CHIEF COMPLAINT: Diverticulitis with pelvic abscess HISTORY OF PRESENT ILLNESS: Patient is status post lower anterior resection and partial omentectomy. Postop day #5. Patient does complain of abdominal pain. She reports her pain is getting better each day. However, she is requiring the IV Dilaudid. She denies any nausea or vomiting. She started full liquid diet this morning. She is having bowel movements and flatus. She did have some nausea this morning that has improved. Afebrile. WBC is 5 Hgb 11.6 platelets 193 doesn't labs from yesterday PHYSICAL EXAM: VITAL SIGNS: Reviewed. GENERAL: Well-developed in no acute distress. HEENT: No sclera icterus. Extraocular movements grossly intact. Moist buccal mucosa. Head is atraumatic, normocephalic. ABDOMEN: Soft. Nondistended. Incisional dressing a few areas of small amount of bleeding noted NEUROLOGIC: Alert and oriented. Cranial nerves II through XII grossly intact. ASSESSMENT: 1. Diverticulitis with pelvic abscess status post lower anterior resection and partial omentectomy PLAN: -Continue full liquids -heplock IV -increase norco to every 4 hours -Encourage patient to ambulate -Encourage patient to use incentive spirometer -Continue antibiotics -Possible discharge tomorrow -GI prophylaxis Protonix and DVT prophylaxis Becky Physician Development Coach note has been reviewed by physician. Signing provider agrees with the documented findings, assessment, and plan of care. Objective - Vital Signs Vital signs: Vital Signs Temp 98.2 F 01/03/21 08:00 Pulse 86 01/03/21 08:00 Resp 19 01/03/21 08:00 BP 124/67 01/03/21 08:00 Pulse Ox 93 L 01/03/21 08:14 Intake & Output 01/02/21 01/03/21 01/03/21 18:59 06:59 18:59 Intake Total 1500 Balance 1500 Intake: IV 1500 D5-0.45% NaCl with KCl 1500 20Meq/l 1,000 ml @ 125 mls/hr IV .Q8H [facility] Rx#: [id number] Other: Voiding Method Toilet Toilet - Labs CBC & Chem 7: 01/02/21 08:35 01/02/21 08:06
--- NOTE | 2021-01-03 15:40 | P.PN ---
Subjective Progress Note Date: 01/03/21 History of present illness 75 years old female with past medical his of COPD, history of pulmonary embolism in May 2018 on Eliquis, GERD, hyperlipidemia, hypertension, hypothyroidism who is admitted under Dr. Wilkinson care for acute diverticulitis with pelvic abscess status post low anterior resection and partial omentectomy on 12/28. Patient was seen today for medical management. Patient endorses abdominal bloating associated with constipation. She is currently on epidural with fentanyl for pain control. Patient denies any nausea or vomiting. She denies any chest pain, shortness of breath. Patient was not passing any flatus or having any bowel movement. She does complain of gas pain in the shoulder. Vitals were reviewed patient is afebrile pulse 77 respiratory rate 70 blood pressure 111/54 oxygen saturation 93% on 2 L. Patient endorses cough but denies any shortness of breath at this moment. Labs ordered patient's WBC is 8.7 hemoglobin 12.9 sodium 135 potassium 3.9 BUN 5 creatinine 0.5 bicarb of 33 glucose 147 ESR elevated. CRP elevated at 15.2, rotavirus detected. 01/01: Patient is resting comfortably in bed. This is postop day 4. incision is clean and dry, patient has not bowel movement she is passing gas. Is having some nausea with pain. She is tolerating clear liquid diet. Patient remains afebrile, heart rate 80, respirations 18, blood pressure 136/70, pulse ox 97% on 3 L. 01/02: She is resting comfortably in bed. This is postop day 5. Incision is clean and dry. Patient states that she is passing gas still did not have any bowel movements. She is denying any nausea or discomfort at this time. She is tolerating clear liquids more than likely will be advanced throughout today. Patient is hopeful to be going home in the next few days. Patient remains afebrile, heart rate 111, respirations 18, blood pressure 124/64, pulse ox 92% on 3 L. 01/03: Oh some day #5. Patient states she continues to have abdominal pain that eating better slowly. She denies any nausea or vomiting. She is on full liquid diet. Patient has been afebrile. Anticipate possible discharge tomorrow. Review of systems Constitutional: Denies chills, Denies fever, Denies lethargy, Denies malaise, Denies poor appetite, Denies weakness, Denies weight loss Eyes: denies decreased vision, denies diplopia, denies discharge, denies pain Ears: deny: decreased hearing Ears, nose, mouth and throat: Denies dental pain, Denies headache, Denies nasal discharge, Denies nose pain Cardiovascular: Denies chest pain, Denies decreased exercise tolerance, Denies edema, Denies high blood pressure, Denies irregular heart beat, Denies palpitations, Denies paroxysmal nocturnal dyspnea, Denies rapid heart beat, Denies shortness of breath Respiratory: Denies congestion, denies cough, Denies cough with sputum, Denies dyspnea, Denies home oxygen, Denies wheezing Gastrointestinal: Endorses abdominal pain improved, denies bloating, Denies change in bowel habits, Denies coffee ground emesis, Denies early satiety, endorses excessive gas, Denies heartburn, Denies hematemesis, Denies hematochezia, Denies loss of appetite, Denies nausea, Denies vomiting Genitourinary: Denies dysuria, Denies flank pain, Denies kidney stones, Denies menorrhagia, Denies urgency, Denies urinary frequency Musculoskeletal: Denies gait dysfunction, Denies limitation of motion, Denies morning stiffness, Denies muscle cramps Integumentary: Denies rash, Denies wounds, Denies brittle nails, Denies change in hair/nails, Denies darkening of skin Neurological: Denies balance difficulties, Denies change in speech, Denies double vision, Denies gait dysfunction, Denies loss of vision, Denies motor dis turbance, Denies numbness, Denies paralysis, Denies paresthesias, Denies seizures Psychiatric: Denies anxiety, Denies depression Endocrine: Denies excessive sweating, Denies excessive thirst, Denies high blood sugars, Denies palpitations Hematologic/Lymphatic: Denies easy bruising, Denies lymphadenopathy Physical exam General Appearance: This is a 75-year-old female patient. She appears to be in no acute distress. Neck HEENT: Supple, no lymphadenopathy, no thyroid enlargement, no carotid bruits. Lungs: Clear to auscultation without crackles or wheezes no rhonchi, no deformity. Chest Wall: Chest wall normal expansion with deep inspiration no tenderness and no deformity was found on exam, no costochondral pain or discomfort. Heart: Regular rate and rhythm, S1, S2 normal, no murmur, rub or gallop. Back: Symmetric, no curvature, ROM normal, no CVA tenderness. Abdomen: Soft, non-tender, no rebound or rigidity, no hepatosplenomegaly. Incisional dressing clean and dry Extremities: Extremities normal, atraumatic, no cyanosis or edema. Pulses: 2+ and symmetric. Skin: Skin color, texture, tugor normal, no rashes or lesions. Neurologic: Alert oriented x3 cranial nerves II through XII intact, no motor deficit, no abnormal balance or gait Assessment and plan 1. acute diverticulitis with pelvic abscess status post low anterior resection with partial omentectomy on 12/28 continue clear liquid diet. Pain management [place] and Dilaudid for breakthrough. Zosyn initiated at 3.375 every 6 hours for pelvic abscess. 2. acute hypoxic respiratory failure secondary to atelectasis no pneumonia noted. Incentive's spirometry 10 times every hour reinforced to the patient. 3. COPD not in exacerbation continue DuoNeb as needed for shortness of breath. Continue breo ellipta 4. pulmonary embolism on Eliquis. We will discuss with surgery team if they're comfortable restarting Eliquis at this moment. 5. hypertension continue metoprolol 25 twice a day 6. hyperlipidemia continue Crestor 10 mg daily at bedtime 7. hypothyroidism continue Synthyroid at 100 g by mouth daily 8. DVT prophylaxis on heparin every 12 CODE STATUS full code Discharge plan: Home Sunday Impression and plan of care have been directed as dictated by the signing physician. Iva Ghosh nurse practitioner acting as scribe for signing physician. Objective - Vital Signs Vital signs: Vital Signs Temp 98.2 F 01/03/21 08:00 Pulse 86 01/03/21 08:00 Resp 19 01/03/21 08:00 BP 124/67 01/03/21 08:00 Pulse Ox 93 L 01/03/21 08:14 Intake & Output 01/02/21 01/03/21 01/03/21 18:59 06:59 18:59 Intake Total 1500 Balance 1500 Intake: IV 1500 D5-0.45% NaCl with KCl 1500 20Meq/l 1,000 ml @ 125 mls/hr IV .Q8H [facility] Rx#: [id number] Other: Voiding Method Toilet Toilet - Labs CBC & Chem 7: 01/02/21 08:35 01/02/21 08:06
[2021-01-03] MEDS: ATORVASTATIN 20 MG TAB PO SCH (21:59)
[2021-01-03] MEDS: MONTELUKAST 10 MG TAB PO SCH (21:59)
[2021-01-03] MEDS: RALOXIFENE 60 MG TAB PO SCH (22:09)
[2021-01-04] MEDS: PIPERACILLIN-TAZOBACTAM 3.375 GM in SODIUM CHLORIDE 0.9% 100 ML IVPB SCH ×3 (00:39→17:23)
[2021-01-04] MEDS: HYDROcodone/APAP 7.5-325MG 1 EACH TAB PO PRN ×4 (00:43→21:07)
[2021-01-04] MEDS: HYDROmorphone 1 MG/ML 1 ML SYRINGE IVP PRN ×2 (04:51→23:04)
[2021-01-04] MEDS: LEVOTHYROXINE 100 MCG TAB PO SCH ×2 (04:52→08:52)
[2021-01-04] MEDS: SYMBICORT 160-4.5 MCG INHALER INHALATION SCH ×2 (07:54→20:09)
[2021-01-04] MEDS: ALVIMOPAN 12 MG CAPSULE PO SCH (08:19)
[2021-01-04] MEDS: PANTOPRAZOLE 40 MG TABLET PO SCH (08:39)
[2021-01-04] MEDS: CYANOCOBALAMIN 500 MCG TAB PO SCH (08:39)
[2021-01-04] MEDS: METOPROLOL TARTRATE 25 MG TAB PO SCH ×2 (08:41→21:06)
[2021-01-04] MEDS: APIXABAN 5 MG TAB PO SCH ×2 (08:41→21:06)
[2021-01-04] MEDS: SIMETHICONE 40 MG/0.6 ML DROPS 2,000 MG/30 ML BOTTLE PO SCH ×5 (08:54→21:07)
--- NOTE | 2021-01-04 13:05 | P.PN ---
Subjective Progress Note Date: 01/04/21 CHIEF COMPLAINT: Diverticulitis with pelvic abscess HISTORY OF PRESENT ILLNESS: Patient is status post lower anterior resection and partial omentectomy. Postop day #6. Patient complains of abdominal pain. She still requiring the IV Dilaudid. She does report that her pain is getting better each day. She is having flatus and BM. Denies any nausea or vomiting. She does not feel ready for discharge yet. Afebrile. No new labs PHYSICAL EXAM: VITAL SIGNS: Reviewed. GENERAL: Well-developed in no acute distress. HEENT: No sclera icterus. Extraocular movements grossly intact. Moist buccal mucosa. Head is atraumatic, normocephalic. ABDOMEN: Soft. Nondistended. Incision clean dry and intact NEUROLOGIC: Alert and oriented. Cranial nerves II through XII grossly intact. ASSESSMENT: 1. Diverticulitis with pelvic abscess status post lower anterior resection and partial omentectomy PLAN: -Advance diet to full liquids -Continue pain medication as needed. Educated patient that she'll be going home with the [place] and to try to refrain from using the IV Dilaudid -Encourage patient to ambulate -Encourage patient to use incentive spirometer -Continue antibiotics -Possible discharge tomorrow -GI prophylaxis Protonix and DVT prophylaxis Eliquis Physician [employer]orer [employer] note has been reviewed by physician. Signing provider agrees with the documented findings, assessment, and plan of care. Objective - Vital Signs Vital signs: Vital Signs Temp 97.9 F 01/04/21 12:47 Pulse 87 01/04/21 12:47 Resp 16 01/04/21 12:47 BP 133/78 01/04/21 12:47 Pulse Ox 94 L 01/04/21 12:47 Intake & Output 01/03/21 01/04/21 01/04/21 18:59 06:59 18:59 Intake Total 1640 Output Total 500 Balance 1140 Weight 64.8 kg Intake: IV 1000 D5-0.45% NaCl with KCl 1000 20Meq/l 1,000 ml @ 125 mls/hr IV .Q8H [facility] Rx#: [id number] Intake, IV Titration 100 Amount Piperacillin-Tazobactam 3 100 .375 gm In Sodium Chloride 0.9% 100 ml @ 25 mls/hr IVPB Q8H [facility] Rx#: [id number] Oral 540 Output: Urine 500 Other: Voiding Method Toilet Toilet Toilet # Voids 4 4 - Labs CBC & Chem 7: 01/02/21 08:35 01/02/21 08:06
[2021-01-04] MEDS: ONDANSETRON 4 MG/2 ML VIAL IVP PRN (14:44)
[2021-01-04] MEDS: MONTELUKAST 10 MG TAB PO SCH (21:06)
[2021-01-04] MEDS: ATORVASTATIN 20 MG TAB PO SCH (21:06)
[2021-01-04] MEDS: RALOXIFENE 60 MG TAB PO SCH (21:49)
[2021-01-05] MEDS: PIPERACILLIN-TAZOBACTAM 3.375 GM in SODIUM CHLORIDE 0.9% 100 ML IVPB SCH ×2 (01:43→08:36)
[2021-01-05] MEDS: LACTATED RINGERS 1,000 ML IV SCH (05:34)
[2021-01-05] MEDS: PANTOPRAZOLE 40 MG TABLET PO SCH (08:35)
[2021-01-05] MEDS: METOPROLOL TARTRATE 25 MG TAB PO SCH (08:35)
[2021-01-05] MEDS: CYANOCOBALAMIN 500 MCG TAB PO SCH (08:35)
[2021-01-05] MEDS: APIXABAN 5 MG TAB PO SCH (08:36)
[2021-01-05] MEDS: SIMETHICONE 40 MG/0.6 ML DROPS 2,000 MG/30 ML BOTTLE PO SCH ×2 (08:41→14:09)
[2021-01-05] MEDS: SYMBICORT 160-4.5 MCG INHALER INHALATION SCH (09:12)
[2021-01-05 14:36] VITALS: BP 113/56; PULSE 95; RESP 16; TEMP 98.1
--- NOTE | 2021-01-05 15:01 | P.DS ---
Providers Date of admission: 12/28/20 08:47 Expected date of discharge: 01/05/21 Attending physician: Reynold Soto Consults: 12/28/20 12:52 Consult Physician Routine Consulting Provider: Magda Garcia Consult Reason/Comments: management Do you want consulting provider notified?: Yes Primary care physician: Magda Garcia Hospital Course: Discharge diagnosis 1. Diverticulitis with pelvic abscess status post lower anterior resection and partial omentectomy Hospital course This is a 75-year-old female with chronic complaints of left lower quadrant abdominal pain and previous history of diverticulitis. She is status post lower anterior resection and partial omentectomy for diverticulitis with pelvic abscess. Patient's pain is controlled. She is tolerating diet. She is having bowel movements. She has been up and ambulating. She is stable for discharge. She will be discharged with oral antibiotics. Incision site clean dry and intact. She is stable for discharge. Please refer to chart for any further details. Physician Risk Professional note has been reviewed by physician. Signing provider agrees with the documented findings, assessment, and plan of care. Patient Condition at Discharge: Stable Plan - Discharge Summary Discharge Rx Participant: No New Discharge Prescriptions: New metroNIDAZOLE [Flagyl] 500 mg PO Q8HR #21 tab Levofloxacin [Levaquin] 500 mg PO DAILY 7 Days #7 tab HYDROcodone/APAP 7.5-325MG [Cycl[place] 7.5-325] 1 tab PO Q6HR PRN 3 Days #12 tab PRN Reason: Pain Continue Cyanocobalamin (Vitamin B-12) [Vitamin B-12] 1 tab PO DAILY Levothyroxine Sodium 100 mcg PO QAM Fluticasone/Vilanterol [Breo Ellipta 200-25 Mcg Inhaler] 1 puff INHALATION QAM Omeprazole 40 mg PO QAM Raloxifene [Evista] 60 mg PO HS Apixaban [Eliquis] 5 mg PO DAILY Metoprolol Tartrate 25 mg PO BID Rosuvastatin [Crestor] 10 mg PO HS Montelukast [Singulair] 10 mg PO HS Discontinued Hydrocodone/Acetaminophen [Cyclone 7.5-325] 1 tab PO BID PRN PRN Reason: Pain Discharge Medication List Apixaban [Eliquis] 5 mg PO DAILY 12/21/20 [History] Cyanocobalamin (Vitamin B-12) [Vitamin B-12] 1 tab PO DAILY 12/21/20 [History] Fluticasone/Vilanterol [Breo Ellipta 200-25 Mcg Inhaler] 1 puff INHALATION QAM 12/21/20 [History] Levothyroxine Sodium 100 mcg PO QAM 12/21/20 [History] Metoprolol Tartrate 25 mg PO BID 12/21/20 [History] Montelukast [Singulair] 10 mg PO HS 12/21/20 [History] Omeprazole 40 mg PO QAM 12/21/20 [History] Raloxifene [Evista] 60 mg PO HS 12/21/20 [History] Rosuvastatin [Crestor] 10 mg PO HS 12/21/20 [History] HYDROcodone/APAP 7.5-325MG [Cyclone 7.5-325] 1 tab PO Q6HR PRN 3 Days #12 tab 01/05/21 [Rx] Levofloxacin [Levaquin] 500 mg PO DAILY 7 Days #7 tab 01/05/21 [Rx] metroNIDAZOLE [Flagyl] 500 mg PO Q8HR #21 tab 01/05/21 [Rx] Follow up Appointment(s)/Referral(s): Magda Garcia MD [Primary Care Provider] - 2 Weeks Reynold Soto MD [STAFF PHYSICIAN] - 1 Week Activity/Diet/Wound Care/Special Instructions: No driving while taking [place] No lifting over 10 pounds You may shower. No soaking or tub baths for 2 weeks Very light activity until you are reevaluated at your follow up appointment with your surgeon Discharge Disposition: HOME WITH HOME HEALTH SERVICES
[2021-01-05] MEDS: HYDROcodone/APAP 7.5-325MG 1 EACH TAB PO PRN (15:08)
--- NOTE | 2021-01-05 16:14 | P.PN ---
Subjective Progress Note Date: 01/04/21 History of present illness 75 years old female with past medical his of COPD, history of pulmonary embolism in May 2018 on Eliquis, GERD, hyperlipidemia, hypertension, hypothyroidism who is admitted under Dr. Wilkinson care for acute diverticulitis with pelvic abscess status post low anterior resection and partial omentectomy on 12/28. Patient was seen today for medical management. Patient endorses abdominal bloating associated with constipation. She is currently on epidural with fentanyl for pain control. Patient denies any nausea or vomiting. She denies any chest pain, shortness of breath. Patient was not passing any flatus or having any bowel movement. She does complain of gas pain in the shoulder. Vitals were reviewed patient is afebrile pulse 77 respiratory rate 70 blood pressure 111/54 oxygen saturation 93% on 2 L. Patient endorses cough but denies any shortness of breath at this moment. Labs ordered patient's WBC is 8.7 hemoglobin 12.9 sodium 135 potassium 3.9 BUN 5 creatinine 0.5 bicarb of 33 glucose 147 ESR elevated. CRP elevated at 15.2, rotavirus detected. 01/01: Patient is resting comfortably in bed. This is postop day 4. incision is clean and dry, patient has not bowel movement she is passing gas. Is having some nausea with pain. She is tolerating clear liquid diet. Patient remains afebrile, heart rate 80, respirations 18, blood pressure 136/70, pulse ox 97% on 3 L. 01/02: She is resting comfortably in bed. This is postop day 5. Incision is clean and dry. Patient states that she is passing gas still did not have any bowel movements. She is denying any nausea or discomfort at this time. She is tolerating clear liquids more than likely will be advanced throughout today. Patient is hopeful to be going home in the next few days. Patient remains afebrile, heart rate 111, respirations 18, blood pressure 124/64, pulse ox 92% on 3 L. 01/03: Postop day #5. Patient states she continues to have abdominal pain that eating better slowly. She denies any nausea or vomiting. She is on full liquid diet. Patient has been afebrile. Anticipate possible discharge tomorrow. 01/04: Patient is postop day #6. She states she still has some abdominal pain that hurts once in a while. She states she is eating and drinking okay. She has had a soft bowel movement. Patient is afebrile, heart rate 87, blood pressure 133/78, pulse ox 94% on room air. Anticipate discharge home once cleared by general surgery. Review of systems Constitutional: Denies chills, Denies fever, Denies lethargy, Denies malaise, Denies poor appetite, Denies weakness, Denies weight loss Eyes: denies decreased vision, denies diplopia, denies discharge, denies pain Ears: deny: decreased hearing Ears, nose, mouth and throat: Denies dental pain, Denies headache, Denies nasal discharge, Denies nose pain Cardiovascular: Denies chest pain, Denies decreased exercise tolerance, Denies edema, Denies high blood pressure, Denies irregular heart beat, Denies palpitations, Denies paroxysmal nocturnal dyspnea, Denies rapid heart beat, Denies shortness of breath Respiratory: Denies congestion, denies cough, Denies cough with sputum, Denies dyspnea, Denies home oxygen, Denies wheezing Gastrointestinal: Endorses abdominal pain improved, denies bloating, Denies change in bowel habits, Denies coffee ground emesis, Denies early satiety, Denies heartburn, Denies hematemesis, Denies hematochezia, Denies loss of appetite, Denies nausea, Denies vomiting Genitourinary: Denies dysuria, Denies flank pain, Denies kidney stones, Denies menorrhagia, Denies urgency, Denies urinary frequency Musculoskeletal: Denies gait dysfunction, Denies limitation of motion, Denies morning stiffness, Denies muscle cramps Integumentary: Denies rash, Denies wounds, Denies brittle nails, Denies change in hair/nails, Denies darkening of skin Neurological: Denies balance difficulties, Denies change in speech, Denies double vision, Denies gait dysfunction, Denies loss of vision, Denies motor disturbance, Denies numbness, Denies paralysis, Denies paresthesias, Denies seizures Psychiatric: Denies anxiety, Denies depression Endocrine: Denies excessive sweating, Denies excessive thirst, Denies high blood sugars, Denies palpitations Hematologic/Lymphatic: Denies easy bruising, Denies lymphadenopathy Physical exam General Appearance: This is a 75-year-old female patient, resting in bed. She appears to be in no acute distress. Neck HEENT: Supple, no lymphadenopathy, no thyroid enlargement, no carotid bruits. Lungs: Clear to auscultation without crackles or wheezes no rhonchi, no deformity. Chest Wall: Chest wall normal expansion with deep inspiration no tenderness and no deformity was found on exam, no costochondral pain or discomfort. Heart: Regular rate and rhythm, S1, S2 normal, no murmur, rub or gallop. Back: Symmetric, no curvature, ROM normal, no CVA tenderness. Abdomen: Soft, non-tender, no rebound or rigidity, no hepatosplenomegaly. Incisional dressing clean and dry Extremities: Extremities normal, atraumatic, no cyanosis or edema. Pulses: 2+ and symmetric. Skin: Skin color, texture, tugor normal, no rashes or lesions. Neurologic: Alert oriented x3 cranial nerves II through XII intact, no motor deficit, no abnormal balance or gait Assessment and plan 1. acute diverticulitis with pelvic abscess status post low anterior resection with partial omentectomy on 12/28 continue clear liquid diet. Pain management [place] and Dilaudid for breakthrough. Zosyn initiated at 3.375 every 6 hours for pelvic abscess. 2. acute hypoxic respiratory failure secondary to atelectasis no pneumonia noted. Incentive's spirometry 10 times every hour reinforced to the patient. Patient is not requiring oxygen. 3. COPD not in exacerbation continue DuoNeb as needed for shortness of breath. Continue breo ellipta 4. pulmonary embolism on Eliquis. We will discuss with surgery team if they're comfortable restarting Eliquis at this moment. 5. hypertension continue metoprolol 25 twice a day 6. hyperlipidemia continue Crestor 10 mg daily at bedtime 7. hypothyroidism continue Synthyroid at 100 g by mouth daily 8. DVT prophylaxis on heparin every 12 CODE STATUS full code Discharge plan: Home Impression and plan of care have been directed as dictated by the signing physician. Iva Ghosh nurse practitioner acting as scribe for signing physician. Objective - Vital Signs Vital signs: Vital Signs Temp 98.1 F 01/04/21 07:46 Pulse 84 01/04/21 07:46 Resp 18 01/04/21 07:46 BP 130/78 01/04/21 07:46 Pulse Ox 95 01/04/21 07:55 Intake & Output 01/03/21 01/04/21 01/04/21 18:59 06:59 18:59 Intake Total 1640 Output Total 500 Balance 1140 Weight 64.8 kg Intake: IV 1000 D5-0.45% NaCl with KCl 1000 20Meq/l 1,000 ml @ 125 mls/hr IV .Q8H VICKI Rx#: [id number] Intake, IV Titration 100 Amount Piperacillin-Tazobactam 3 100 .375 gm In Sodium Chloride 0.9% 100 ml @ 25 mls/hr IVPB Q8H VICKI Rx#: [id number] Oral 540 Output: Urine 500 Other: Voiding Method Toilet Toilet Toilet # Voids 4 4 - Labs CBC & Chem 7: 01/02/21 08:35 01/02/21 08:06
--- NOTE | 2021-01-05 16:16 | P.PN ---
Subjective Progress Note Date: 01/05/21 History of present illness 75 years old female with past medical his of COPD, history of pulmonary embolism in May 2018 on Eliquis, GERD, hyperlipidemia, hypertension, hypothyroidism who is admitted under Dr. Wilkinson care for acute diverticulitis with pelvic abscess status post low anterior resection and partial omentectomy on 12/28. Patient was seen today for medical management. Patient endorses abdominal bloating associated with constipation. She is currently on epidural with fentanyl for pain control. Patient denies any nausea or vomiting. She denies any chest pain, shortness of breath. Patient was not passing any flatus or having any bowel movement. She does complain of gas pain in the shoulder. Vitals were reviewed patient is afebrile pulse 77 respiratory rate 70 blood pressure 111/54 oxygen saturation 93% on 2 L. Patient endorses cough but denies any shortness of breath at this moment. Labs ordered patient's WBC is 8.7 hemoglobin 12.9 sodium 135 potassium 3.9 BUN 5 creatinine 0.5 bicarb of 33 glucose 147 ESR elevated. CRP elevated at 15.2, rotavirus detected. 01/01: Patient is resting comfortably in bed. This is postop day 4. incision is clean and dry, patient has not bowel movement she is passing gas. Is having some nausea with pain. She is tolerating clear liquid diet. Patient remains afebrile, heart rate 80, respirations 18, blood pressure 136/70, pulse ox 97% on 3 L. 01/02: She is resting comfortably in bed. This is postop day 5. Incision is clean and dry. Patient states that she is passing gas still did not have any bowel movements. She is denying any nausea or discomfort at this time. She is tolerating clear liquids more than likely will be advanced throughout today. Patient is hopeful to be going home in the next few days. Patient remains afebrile, heart rate 111, respirations 18, blood pressure 124/64, pulse ox 92% on 3 L. 01/03: Postop day #5. Patient states she continues to have abdominal pain that eating better slowly. She denies any nausea or vomiting. She is on full liquid diet. Patient has been afebrile. Anticipate possible discharge tomorrow. 01/04: Patient is postop day #6. She states she still has some abdominal pain that hurts once in a while. She states she is eating and drinking okay. She has had a soft bowel movement. Patient is afebrile, heart rate 87, blood pressure 133/78, pulse ox 94% on room air. Anticipate discharge home once cleared by general surgery. 01/05: Patient denies having a bowel movement today. She is tolerating diet, no nausea or vomiting. She does have occasional abdominal pain. Patient is on a regular diet. She denies having any fever or chills. No shortness of breath. Patient is reaching 800 on incentive spirometry. Medication reconciliation has been reviewed in anticipation of discharge home today. Review of systems Constitutional: Denies chills, Denies fever, Denies lethargy, Denies malaise, Denies poor appetite, Denies weakness, Denies weight loss Eyes: denies decreased vision, denies diplopia, denies discharge, denies pain Ears: deny: decreased hearing Ears, nose, mouth and throat: Denies dental pain, Denies headache, Denies nasal discharge, Denies nose pain Cardiovascular: Denies chest pain, Denies decreased exercise tolerance, Denies edema, Denies high blood pressure, Denies irregular heart beat, Denies palpitations, Denies paroxysmal nocturnal dyspnea, Denies rapid heart beat, Denies shortness of breath Respiratory: Denies congestion, denies cough, Denies cough with sputum, Denies dyspnea, Denies home oxygen, Denies wheezing Gastrointestinal: Endorses abdominal pain improved, denies bloating, Denies change in bowel habits, Denies coffee ground emesis, Denies loss of appetite, Denies nausea, Denies vomiting Genitourinary: Denies dysuria, Denies flank pain, Denies kidney stones, Denies menorrhagia, Denies urgency, Denies urinary frequency Musculoskeletal: Denies gait dysfunction, Denies limitation of motion, Denies morning stiffness, Denies muscle cramps Integumentary: Denies rash, Denies wounds, Denies brittle nails, Denies change in hair/nails, Denies darkening of skin Neurological: Denies balance difficulties, Denies change in speech, Denies double vision, Denies gait dysfunction, Denies loss of vision, Denies motor disturbance, Denies numbness, Denies paralysis, Denies paresthesias, Denies seizures Psychiatric: Denies anxiety, Denies depression Endocrine: Denies excessive sweating, Denies excessive thirst, Denies high blood sugars, Denies palpitations Hematologic/Lymphatic: Denies easy bruising, Denies lymphadenopathy Physical exam General Appearance: This is a 75-year-old female patient in no acute distress. Neck HEENT: Supple, no lymphadenopathy, no thyroid enlargement, no carotid bruits. Lungs: Clear to auscultation without crackles or wheezes no rhonchi, no deformity. Chest Wall: Chest wall normal expansion with deep inspiration no tenderness and no deformity was found on exam, no costochondral pain or discomfort. Heart: Regular rate and rhythm, S1, S2 normal, no murmur, rub or gallop. Back: Symmetric, no curvature, ROM normal, no CVA tenderness. Abdomen: Soft, non-tender, no rebound or rigidity, no hepatosplenomegaly. Incisional dressing clean and dry Extremities: Extremities normal, atraumatic, no cyanosis or edema. Pulses: 2+ and symmetric. Skin: Skin color, texture, tugor normal, no rashes or lesions. Neurologic: Alert oriented x3 cranial nerves II through XII intact, no motor def icit, no abnormal balance or gait Assessment and plan 1. acute diverticulitis with pelvic abscess status post low anterior resection with partial omentectomy on 12/28 continue clear liquid diet. Pain management [place] and Dilaudid for breakthrough. Zosyn initiated at 3.375 every 6 hours for pelvic abscess. Antibiotics per general surgery. 2. acute hypoxic respiratory failure secondary to atelectasis no pneumonia noted. Incentive's spirometry 10 times every hour reinforced to the patient. Patient is not requiring oxygen. 3. COPD not in exacerbation continue DuoNeb as needed for shortness of breath. Continue breo ellipta 4. pulmonary embolism on Eliquis. We will discuss with surgery team if they're comfortable restarting Eliquis at this moment. 5. hypertension continue metoprolol 25 twice a day 6. hyperlipidemia continue Crestor 10 mg daily at bedtime 7. hypothyroidism continue Synthyroid at 100 g by mouth daily 8. DVT prophylaxis on heparin every 12 CODE STATUS full code Discharge plan: Home Impression and plan of care have been directed as dictated by the signing physician. Iva Ghosh nurse practitioner acting as scribe for signing physician. Objective - Vital Signs Vital signs: Vital Signs Temp 98.5 F 01/05/21 05:00 Pulse 88 01/05/21 05:00 Resp 20 01/05/21 05:00 BP 124/70 01/05/21 05:00 Pulse Ox 92 L 01/05/21 05:00 Intake & Output 01/04/21 01/05/21 01/05/21 18:59 06:59 18:59 Intake Total 480 400 Balance 480 400 Intake: Oral 480 400 Other: Voiding Method Toilet Toilet Toilet # Voids 2 2 - Labs CBC & Chem 7: 01/02/21 08:35 01/02/21 08:06
== END 2021-01-05 16:12 | disposition home or self-care (01) | DRG 329 ==
LOC: 2ORMAIN 08:47 → 4SSUR 16:20 → 5NMEDONC 01-04 09:59
PROVIDERS: ADMIT Surgery; ATTEND Surgery
PROC: 0DBP0ZZ Excision of Rectum, Open Approach (ICD-10-PCS; 2020-12-28)
PROC: 0DBU0ZZ Excision of Omentum, Open Approach (ICD-10-PCS; 2020-12-28)
PROC: 0DBN0ZZ Excision of Sigmoid Colon, Open Approach (ICD-10-PCS; principal; 2020-12-28 10:30)
DX: K57.92 Diverticulitis of intestine, part unspecified, without perforation or abscess without bleeding (principal); J96.01 Acute respiratory failure with hypoxia; J90 Pleural effusion, not elsewhere classified; J98.11 Atelectasis; E03.9 Hypothyroidism, unspecified; E78.5 Hyperlipidemia, unspecified; E83.42 Hypomagnesemia; F17.200 Nicotine dependence, unspecified, uncomplicated; I10 Essential (primary) hypertension; Z86.711 Personal history of pulmonary embolism; J44.9 Chronic obstructive pulmonary disease, unspecified; K59.00 Constipation, unspecified; L50.9 Urticaria, unspecified; N73.9 Female pelvic inflammatory disease, unspecified; Z20.822 Contact with and (suspected) exposure to COVID-19; Z79.01 Long term (current) use of anticoagulants; Z79.899 Other long term (current) drug therapy; Z80.42 Family history of malignant neoplasm of prostate; R79.82 Elevated C-reactive protein (CRP)
CPT/HCPCS: 71045; 80048; 80053; 83605; 83735; 85025; 85027; 85652; 86140; 86850; 86900; 86901; 87070; 87075; 87077; 87186; 87205; 87635; 88307; 94640; 94760

== ENCOUNTER → 2021-08-11 | Day surgery (SDC) | payer MEDICARE, OTHER ==
[~2021-08-11] MED LIST changes: -ACETAMINOPHEN TAB 500 MG TAB PO PRN; -DEXAMETHASONE SOD PHOSPHATE 4 MG/ML 1 ML VIAL IV ONE; -HEPARIN SODIUM,PORCINE/PF 5,000 UNIT/0.5 ML SYRINGE SQ PRN; -HYDROmorphone 0.5 MG/0.5 ML SYRINGE IVP PRN; +HYDROmorphone 0.5 MG/0.5 ML SYRINGE IVP STA; -MIDAZOLAM 2 MG/2 ML VIAL IV PRN; -metroNIDAZOLE-NS PMX 500 MG in SALINE 1 100ML.BAG IVPB PRN
[2021-08-11 09:17] VITALS: RESP 16; TEMP 97.6
[2021-08-11 09:36] LABS: Mean Platelet Volume 8.1; Platelet Count 366 k/uL (150-450)
[2021-08-11 10:00] LABS: INR 1.1 (<1.2); Prothrombin Time 11.3 sec (9.0-12.0)
[2021-08-11] MEDS: HYDROcodone/APAP 5-325MG 1 EACH TAB PO PRN ×2 (11:28→12:50)
--- NOTE | 2021-08-11 11:43 | US ---
EXAMINATION TYPE: US biopsy liver DATE OF EXAM: 08/11/2021 COMPARISON: NONE HISTORY: Liver mass Findings: The procedure was explained to the patient. The risks, complications, benefits, and alternatives wer e discussed and any questions were answered. Informed consent was obtained. Patient was placed supi ne on the CT table and prepped and draped in the usual sterile fashion. The lesion was not well seen by CT scan noncontrast and ultrasound was utilized. The liver appeared to be diffusely heterogeneous without evidence of discrete mass. Small amount contrast was also given and the patient is part of a CT scan demonstrating widespread diffuse low attenuation likely related to diffuse liver involvement . All elements of maximal barrier and sterile technique utilized. Utilizing CT guidance, an 18 gauge core biopsy needle access into the left lobe of the liver was ach ieved and a single 18 gauge core sample was obtained. The patient only allowed one sample to be obtai sammie. The patient was stable throughout the procedure and remained stable upon discharge. IMPRESSION: 1. Successful 18 gauge core biopsy of the liver.
--- NOTE | 2021-08-11 12:10 | CT ---
EXAMINATION TYPE: CT biopsy liver DATE OF EXAM: 08/11/2021 COMPARISON: NONE HISTORY: Liver mass CT DLP: [id number] The procedure was explained to the patient. The risks, complications, benefits, and alternatives wer e discussed and any questions were answered. Informed consent was obtained. Patient was placed supi ne on the CT table and prepped and draped in the usual sterile fashion. All elements of maximal barrier and sterile technique utilized. The lesions were not well seen by noncontrast CT scan. Contrast given to the patient appears to be di ffuse abnormal attenuation throughout the liver. Right lung lesion also noted. Procedure was to be pe rformed and ultrasound IMPRESSION: 1. See above.
[2021-08-11 14:23] VITALS: BP 128/61; PULSE 102
== END ==
LOC: RADPROMAIN 08:49
PROVIDERS: ATTEND Internal Medicine Hematology & Oncology
DX: K76.89 Other specified diseases of liver (principal)
CPT/HCPCS: 85049; 85610; 88342; 88307; 88341; 96374; 36415; 47000; 76942; J1170; Q9967; 77012